=== PATIENT | female | born 1950 | race African-American/Black ===

== ENCOUNTER 2017-02-12 18:23 | Emergency (ER) | payer MEDICARE ==
[~2017-02-12] VITALS: Ht 162.6 cm; Wt 83.5 kg
[2017-02-12] MEDS ORDERED: IPRATRPIUM/ALBUTEROL 0.5/2.5MG 3 ML NEBU. NEB ONE (18:45)
[2017-02-12] MEDS ORDERED: methylPREDNISolone SOD SUCC PF 125 MG/2 ML VIAL. IV ONE (18:45)
[2017-02-12] MEDS ORDERED: ALBUTEROL SULFATE 2.5 MG/3 ML NEBU. INH ONE (18:45)
[2017-02-12 19:02] LABS: BASO # 0.1 x10^3/uL (0.0-0.2); BASO % 1 % (0-3); EOS % 5 % (0-3); HEMATOCRIT 42.2 % (36.0-47.0); HEMOGLOBIN 13.7 g/dL (12.0-15.5); LYMPH # 1.8 x10^3/uL (1.0-4.8); LYMPH % 15 % (24-48); MEAN CORPUSCULAR HEMOGLOBIN 28 pg (25-35); MEAN CORPUSCULAR HGB CONC 33 g/dL (31-37); MEAN CORPUSCULAR VOLUME 85 fL (79-100); MONO % 13 % (0-9); NEUT % 66 % (31-73); PLATELET COUNT 231 x10^3/uL (140-400); RED BLOOD COUNT 4.95 x10^6/uL (3.50-5.40); RED CELL DISTRIBUTION WIDTH 16.9 % (11.5-14.5); WHITE BLOOD COUNT 11.9 x10^3/uL (4.0-11.0)
[2017-02-12 19:15] LABS: CALCIUM 9.2 mg/dL (8.5-10.1); CREATININE 0.8 mg/dL (0.6-1.0); GFR 87.1; POTASSIUM 3.8 mmol/L (3.5-5.1)
[2017-02-12] MEDS ORDERED: ALBUTEROL SULFATE 2.5 MG/3 ML NEBU. CONT NEB ONE (19:45)
[2017-02-12 21:36] VITALS: BP 148/78
[2017-02-12] MEDS ORDERED: AZIT250T6 PO (21:43)
[2017-02-12] MEDS ORDERED: PRED50TA PO (21:43)
--- NOTE | 2017-02-12 21:43 | PHYS DOC ---
Past Medical History Past Medical History: COPD, Diabetes-Type II, Hypertension Past Surgical History: Cholecystectomy, Hysterectomy, Other Additional Past Surgical Histo: BACK Additional Information: 0.5 PPD Alcohol Use: None Drug Use: None Adult General Chief Complaint Chief Complaint: SHORTNESS OF BREATH HPI HPI Patient is a 66 year old female who presents with shortness of breath. Patient reports 2 day history of wheezing, shortness of breath at rest, cough productive of small amount of yellow sputum. Denies fevers/chills, chest pain, lower extremity pain/swelling. She has history of COPD dependent on home O2 2L at baseline, no previous hospitalizations for COPD, has visited ED previously. Symptoms not improved by use of home inhalers. She still smokes cigarettes. Denies cardiac history. PCP is Dr. Humphries, doesn't have corporate lawyer. Review of Systems Review of Systems Constitutional: Denies fever or chills Eyes: Denies change in visual acuity HENT: Denies nasal congestion or sore throat Respiratory: Reports cough & shortness of breath Cardiovascular: Denies chest pain or edema GI: Denies abdominal pain, nausea, vomiting, or diarrhea Musculoskeletal: Denies back pain or joint pain Integument: Denies rash or skin lesions Neurologic: Denies headache, focal weakness or sensory changes Current Medications Current Medications Current Medications Medications (Trade) Dose Ordered Sig/Lizeth Start Time Stop Time Status Last Admin Dose Admin Albuterol Sulfate (Ventolin Neb Soln) 10 mg 1X ONCE 02/12/17 19:45 02/12/17 19:48 DC 02/12/17 20:04 10 MG Albuterol/ Ipratropium (Duoneb) 3 ml 1X ONCE 02/12/17 18:45 02/12/17 18:52 DC 02/12/17 19:03 3 ML Methylprednisolone Sodium Succinate (SOLU-Medrol 125MG VIAL) 125 mg 1X ONCE 02/12/17 18:45 02/12/17 18:52 DC 02/12/17 19:37 125 MG Allergies Allergies Allergies Coded Allergies Type Severity Reaction Last Updated Verified ciprofloxacin Allergy Unknown 02/12/17 Yes codeine Allergy Unknown 02/12/17 Yes Physical Exam Physical Exam Constitutional: obese, no acute distress, non-toxic appearance. HENT: Normocephalic, atraumatic, bilateral external ears normal, oropharynx moist, nose normal. Eyes: conjunctiva normal, no discharge. Neck: supple, no stridor. Cardiovascular: RRR, no murmurs, no edema. Lungs & Thorax: breath sounds present bilaterally, expiratory wheezes in all lung [place], increased work of breathing, speaking in complete sentences, no use of accessory muscles, no distress. Abdomen: soft, nontender, nondistended. Skin: Warm, dry, no erythema, no rash. Back: No tenderness. Extremities: No tenderness, no edema. no calf tenderness or swelling. Neurologic: Alert and oriented X 3, no focal deficits noted. Psychologic: Affect normal, judgement normal, mood normal. Current Patient Data Vital Signs Vital Signs Date Time Temp Pulse Resp B/P (MAP) Pulse Ox O2 Delivery O2 Flow Rate FiO2 02/12/17 21:36 95 18 148/78 (101) 94 Room Air 02/12/17 20:05 2.0 02/12/17 18:28 98.6 98.6 Lab Values Laboratory Tests Test 02/12/17 18:30 White Blood Count 11.9 x10^3/uL (4.0-11.0) H Red Blood Count 4.95 x10^6/uL (3.50-5.40) Hemoglobin 13.7 g/dL (12.0-15.5) Hematocrit 42.2 % (36.0-47.0) Mean Corpuscular Volume 85 fL (79-100) Mean Corpuscular Hemoglobin 28 pg (25-35) Mean Corpuscular Hemoglobin Concent 33 g/dL (31-37) Red Cell Distribution Width 16.9 % (11.5-14.5) H Platelet Count 231 x10^3/uL (140-400) Neutrophils (%) (Auto) 66 % (31-73) Lymphocytes (%) (Auto) 15 % (24-48) L Monocytes (%) (Auto) 13 % (0-9) H Eosinophils (%) (Auto) 5 % (0-3) H Basophils (%) (Auto) 1 % (0-3) Neutrophils # (Auto) 7.9 x10^3uL (1.8-7.7) H Lymphocytes # (Auto) 1.8 x10^3/uL (1.0-4.8) Monocytes # (Auto) 1.5 x10^3/uL (0.0-1.1) H Eosinophils # (Auto) 0.6 x10^3/uL (0.0-0.7) Basophils # (Auto) 0.1 x10^3/uL (0.0-0.2) Sodium Level 147 mmol/L (136-145) H Potassium Level 3.8 mmol/L (3.5-5.1) Chloride Level 109 mmol/L (98-107) H Carbon Dioxide Level 27 mmol/L (21-32) Anion Gap 11 (6-14) Blood Urea Nitrogen 13 mg/dL (7-20) Creatinine 0.8 mg/dL (0.6-1.0) Estimated GFR (Cockcroft-Gault) 87.1 Glucose Level 143 mg/dL (70-99) H Calcium Level 9.2 mg/dL (8.5-10.1) Troponin I Quantitative < 0.017 ng/mL (0.000-0.055) GR-Iyp-Z-Type Natriuretic Peptide 141 pg/mL (0-124) H Laboratory Tests 02/12/17 18:30 Laboratory Tests 02/12/17 18:30 EKG EKG interpreted by me: NSR rate 86, no acute ST/T wave changes, RBBB, no ectopy.[] Radiology/Procedures Radiology/Procedures CXR: interpreted by me: no cardiomegaly, no infiltrate, no pneumothorax, no acute process.[] Course & Med Decision Making Course & Med Decision Making Pertinent Labs and Imaging studies reviewed. (See chart for details) Patient presents with shortness of breath consistent with COPD exacerbation. O2 stable on 2L by NC but significant wheezing on exam. Gave duoneb, albuterol , solumedrol. She felt better but not back to baseline, still wheezing on exam. Gave hour long albuterol treatment & she felt markedly better, wheezing improved. Never hypoxic here. Requested discharge home. Gave prescriptions for prednisone & z pack, continue inhalers, recommend follow up with PCP in 2-3 days. Come back for high fever, severe chest pain or shortness of breath, any otherwise worsening condition. Discharged home in stable & improved condition. Critical care time: 35 minutes [] Dragon Disclaimer Dragon Disclaimer This electronic medical record was generated, in whole or in part, using a voice recognition dictation system. Departure Departure Impression: Primary Impression: COPD with exacerbation Disposition: HOME, SELF-CARE Condition: IMPROVED Referrals: KENAN HUMPHRIES (PCP) Patient Instructions: Chronic Obstructive Pulmonary Disease Exacerbation, Easy- to-Read Additional Instructions: You were seen in the emergency department today for exacerbation of COPD. Tests here did not show any other serious problems. Please continue using home inhalers. Take prednisone and azithromycin as prescribed. Follow-up with primary care physician in 2-3 days. Return to the emergency department for severe shortness of breath or chest pain, or any otherwise worsening condition. Scripts Azithromycin (AZITHROMYCIN TABLET) 250 Mg Tablet 1 PKG PO UD, #6 TAB Prov: WILBER LUCIANO MD 02/12/17 Prednisone (PREDNISONE) 50 Mg Tablet 1 TAB PO DAILY, #5 TAB Prov: WILBER LUCIANO MD 02/12/17 WILBER LUCIANO MD February 12, 2017 21:43
--- NOTE | 2017-02-13 07:10 | EKG ---
[facility] [address] [place] [address] Test Date: 2017-02-12 Test Time: 18:34:31 Pat Name: AVTAR MC Department: Room: Gender: F Technical Engineer: Farzaneh : 1950 Requested By: WILBER LUCIANO Order Number: [id number] Reading MD: Duane Barrientos Measurements Intervals [place] Rate: 86 P: 70 MD: 166 QRS: -43 QRSD: 124 T: 28 QT: 398 QTc: 480 Interpretive Statements SINUS RHYTHM ABNORMAL LEFT AXIS DEVIATION LEFT ANTERIOR FASCICULAR BLOCK RIGHT BUNDLE BRANCH BLOCK Electronically Signed On 02-13-2017 10:44:20 CDT by Duane Barrientos
--- NOTE | 2017-02-13 08:22 | RAD ---
Indication shortness of air. Hypertension. Diabetes. COPD. A single view of the chest was obtained and comparison is made to an examination October 09, 2012. The heart and pulmonary vessels appear normal. The lungs are clear. There has not been a significant change when compared to the previous exam. IMPRESSION: No acute or focal process. No significant change
== END 2017-02-12 22:01 | disposition home or self-care (01) ==
LOC: ER 18:23
DX: J44.1 Chronic obstructive pulmonary disease with (acute) exacerbation (principal); E11.9 Type 2 diabetes mellitus without complications; I10 Essential (primary) hypertension; F17.210 Nicotine dependence, cigarettes, uncomplicated; Z88.1 Allergy status to other antibiotic agents; Z88.5 Allergy status to narcotic agent
CPT/HCPCS: 36415; 71010; 80048; 83880; 84484; 85027; 93005; 94250; 94644; 96374; 99291; J2930; J7620; 94640

== ENCOUNTER → 2018-09-19 | Outpatient (CLI) | payer MEDICARE ==
[2018-08-23 09:15] VITALS: BP 143/72
[~2018-09-19] MED LIST: AMLO10TA6 PO; AZIT250T6 PO; CEPH250C PO; HYDR-2765 PO; HYDR-3135 PO; IPRA4AER IH; LOSA-73 PO; LOSA100T14 PO; PRED50TA PO; VENTOLIN HFA18 GM INH; ZOLP5TAB5 PO
--- NOTE | 2018-09-19 15:05 | RAD ---
CLINICAL HISTORY: LUNG MASS. INDICATION: Initial evaluation. COMPARISON: CT chest 08/20/2018, CT guided biopsy 08/22/2018. TECHNIQUE: Location of scan: [facility] Radiopharmaceutical Dose: 11.34 mCi F-18 FDG intravenous Blood glucose at time of study: 96 FDG uptake time = 60 minutes. Images were obtained from the mid head to the mid thighs. A low dose, noncontrast CT study was performed for the purpose of attenuation correction and anatomic localization. FINDINGS: Head and Neck: Physiologic activity within the head and neck Chest: A 2.6 cm right upper lobe lung nodule is seen within SUV max of 13.9. No definite other focus of increased metabolic activity is seen within the chest. A few calcified mediastinal lymph nodes are seen. Coronary artery calcifications are seen. Abdomen and Pelvis: Physiologic activity is seen within the GI and systems. No focus of abnormal increased metabolic activity is identified. Musculoskeletal: Mildly increased metabolic activity is seen about the left shoulder including the rotator cuff and deltoid, likely from movement of the left shoulder prior to scanning. No discrete focus of abnormal activity is seen within the left shoulder. Reference SUV Values: Mediastinal SUV Max: 3.1 Liver SUV Max: 3.7 IMPRESSION: Hypermetabolic right lung nodule is consistent with the known right lung malignancy. No definite abnormal thoracic, abdominal or pelvic focus of increased metabolic activity is seen. Radiation Dosimetry: The radiopharmaceutical used for this exam delivers approximately 0.7 mSv/mCi (70 mRem/mCi) Source: ICRP Publication 106
== END | disposition home or self-care (01) ==
LOC: PETSC 11:23
PROVIDERS: ATTEND Internal Medicine Pulmonary Disease
DX: R91.8 Other nonspecific abnormal finding of lung field (principal); I25.10 Atherosclerotic heart disease of native coronary artery without angina pectoris; F17.210 Nicotine dependence, cigarettes, uncomplicated
CPT/HCPCS: 78815; A9552

== ENCOUNTER 2018-10-04 00:06 | Emergency (ER) | payer MEDICARE, OTHER ==
[~2018-10-04] VITALS: Ht 162.6 cm; Wt 78.9 kg
[2018-10-04 00:42] LABS: BASO # 0.1 x10^3/uL (0.0-0.2); BASO % 1 % (0-3); BILIRUBIN,URINE NEGATIVE (NEG); CLARITY,URINE CLOUDY; COLOR,URINE YELLOW; EOS # 0.4 x10^3/uL (0.0-0.7); EOS % 5 % (0-3); HEMATOCRIT 34.9 % (36.0-47.0); LYMPH # 1.4 x10^3/uL (1.0-4.8); LYMPH % 16 % (24-48); MEAN CORPUSCULAR HEMOGLOBIN 29 pg (25-35); MEAN CORPUSCULAR HGB CONC 34 g/dL (31-37); MEAN CORPUSCULAR VOLUME 85 fL (79-100); MONO # 0.6 x10^3/uL (0.0-1.1); MONO % 7 % (0-9); NEUT # 6.4 x10^3uL (1.8-7.7); NEUT % 71 % (31-73); NITRITE,URINE NEGATIVE (NEG); PLATELET COUNT 254 x10^3/uL (140-400); PROTEIN,URINE NEGATIVE (NEG-TRACE); RED BLOOD COUNT 4.09 x10^6/uL (3.50-5.40); RED CELL DISTRIBUTION WIDTH 15.6 % (11.5-14.5)
[2018-10-04 00:46] LABS: BACTERIA,URINE MANY /HPF (0-FEW); SQUAMOUS EPITHELIAL CELL,UR OCC /LPF; WBC,URINE TNTC /HPF (0-4)
[2018-10-04 01:11] VITALS: BP 150/81
[2018-10-04 01:12] LABS: CALCIUM 9.2 mg/dL (8.5-10.1); CREATININE 0.7 mg/dL (0.6-1.0); POTASSIUM 3.4 mmol/L (3.5-5.1)
[2018-10-04] MEDS ORDERED: SULF1TAB24 PO (01:25)
[2018-10-04] MEDS: SMZ/TMP 800/160MG TABLET. PO ONE (01:30)
--- NOTE | 2018-10-04 04:44 | PHYS DOC ---
Past Medical History Past Medical History: COPD, Diabetes-Type II, Hypertension Additional Past Medical Histor: straight caths self Past Surgical History: Cholecystectomy, Hysterectomy, Other Additional Past Surgical Histo: BACK Alcohol Use: None Drug Use: None Adult General Chief Complaint Chief Complaint: DIARRHEA HPI HPI Patient is a 68 year old female with history of neurogenic bladder who presents with dysuria, burning, and reported intermittent daily diarrhea for the past month. Patient denies dizziness lightheadedness, fever chills, nausea vomiting or sweats. No flank pain, lower abdominal pain. No other acute symptoms or complaints. [] Review of Systems Review of Systems Constitutional: Denies fever or chills [] Eyes: Denies change in visual acuity, redness, or eye pain [] HENT: Denies nasal congestion or sore throat [] Respiratory: Denies cough or shortness of breath [] Cardiovascular: No additional information not addressed in HPI [] GI: Denies abdominal pain, nausea, vomiting, bloody stools or diarrhea [] : Denies dysuria or hematuria [] Musculoskeletal: Denies back pain or joint pain [] Integument: Denies rash or skin lesions [] Neurologic: Denies headache, focal weakness or sensory changes [] Endocrine: Denies polyuria or polydipsia [] All other systems were reviewed and found to be within normal limits, except as documented in this note. Current Medications Current Medications Current Medications Medications (Trade) Dose Ordered Sig/Lizeth Start Time Stop Time Status Last Admin Dose Admin Trimethoprim/ Sulfamethoxazole (Bactrim Ds) 1 tab 1X ONCE 10/04/18 02:00 10/04/18 02:00 DC 10/04/18 01:30 1 TAB Allergies Allergies Allergies Coded Allergies Type Severity Reaction Last Updated Verified ciprofloxacin Allergy Intermediate 06/18/18 Yes codeine Allergy Intermediate LORTAB OK 06/19/18 Yes Physical Exam Physical Exam Constitutional: Well developed, well nourished, no acute distress, non-toxic appearance. [] HENT: Normocephalic, atraumatic, bilateral external ears normal, oropharynx moist, nose normal. [] Eyes: PERRLA, EOMI, conjunctiva normal, no discharge. [] Neck: Normal range of motion, no tenderness. [] Cardiovascular:Heart rate regular rhythm, no murmur [] Lungs & Thorax: Bilateral breath sounds clear to auscultation [] Abdomen: Bowel sounds normal, soft, no tenderness. [] Skin: Warm, dry, no erythema, no rash. [] Back: No tenderness. [] Extremities: No tenderness, no edema. [] Neurologic: Alert and oriented X 3, normal motor function, normal sensory function, no focal deficits noted. [] Psychologic: Affect normal, judgement normal, mood normal. [] Current Patient Data Vital Signs Vital Signs Date Time Temp Pulse Resp B/P (MAP) Pulse Ox O2 Delivery O2 Flow Rate FiO2 10/04/18 01:11 77 18 150/81 (104) 96 Room Air 10/04/18 00:10 98.1 98.1 Lab Values Laboratory Tests Test 10/04/18 00:20 10/04/18 00:50 White Blood Count 9.0 x10^3/uL (4.0-11.0) Red Blood Count 4.09 x10^6/uL (3.50-5.40) Hemoglobin 12.0 g/dL (12.0-15.5) Hematocrit 34.9 % (36.0-47.0) L Mean Corpuscular Volume 85 fL (79-100) Mean Corpuscular Hemoglobin 29 pg (25-35) Mean Corpuscular Hemoglobin Concent 34 g/dL (31-37) Red Cell Distribution Width 15.6 % (11.5-14.5) H Platelet Count 254 x10^3/uL (140-400) Neutrophils (%) (Auto) 71 % (31-73) Lymphocytes (%) (Auto) 16 % (24-48) L Monocytes (%) (Auto) 7 % (0-9) Eosinophils (%) (Auto) 5 % (0-3) H Basophils (%) (Auto) 1 % (0-3) Neutrophils # (Auto) 6.4 x10^3uL (1.8-7.7) Lymphocytes # (Auto) 1.4 x10^3/uL (1.0-4.8) Monocytes # (Auto) 0.6 x10^3/uL (0.0-1.1) Eosinophils # (Auto) 0.4 x10^3/uL (0.0-0.7) Basophils # (Auto) 0.1 x10^3/uL (0.0-0.2) Urine Collection Type U cath Urine Color Yellow Urine Clarity Cloudy Urine pH 6.0 Urine Specific [place] 1.015 Urine Protein Negative mg/dL (NEG-TRACE) Urine Glucose (UA) Negative mg/dL (NEG) Urine Ketones (Stick) Negative mg/dL (NEG) Urine Blood Trace (NEG) Urine Nitrite Negative (NEG) Urine Bilirubin Negative (NEG) Urine Urobilinogen Dipstick 1.0 mg/dL (0.2 mg/dL) Urine Leukocyte Esterase Large (NEG) Urine RBC 1-2 /HPF (0-2) Urine WBC Tntc /HPF (0-4) Urine Squamous Epithelial Cells Occ /LPF Urine Bacteria Many /HPF (0-FEW) Sodium Level 140 mmol/L (136-145) Potassium Level 3.4 mmol/L (3.5-5.1) L Chloride Level 106 mmol/L (98-107) Carbon Dioxide Level 31 mmol/L (21-32) Anion Gap 3 (6-14) L Blood Urea Nitrogen 22 mg/dL (7-20) H Creatinine 0.7 mg/dL (0.6-1.0) Estimated GFR (Cockcroft-Gault) 101.0 Glucose Level 137 mg/dL (70-99) H Calcium Level 9.2 mg/dL (8.5-10.1) Laboratory Tests 10/04/18 00:20 Laboratory Tests 10/04/18 00:50 EKG EKG [] Radiology/Procedures Radiology/Procedures [] Course & Med Decision Making Course & Med Decision Making Pertinent Labs and Imaging studies reviewed. (See chart for details) Soft, nontender, lab work reviewed. First dose of antibiotics given in the emergency department. Recommend empiric and buttocks with outpatient follow-up.] Dragon Disclaimer Dragon Disclaimer This electronic medical record was generated, in whole or in part, using a voice recognition dictation system. Departure Departure Impression: Primary Impression: Urinary tract infection Additional Impression: Diarrhea Disposition: 01 HOME, SELF-CARE Condition: GOOD Patient Instructions: Urinary Tract Infection, Brin-[id number]-Mmlr, Diarrhea, Easy-to- Read Additional Instructions: You were evaluated in the emergency department for diarrhea and dysuria. Lab work was performed and is consistent with a lower urinary tract infection. Please take antibiotics as directed and an Imodium [id number] as needed. Follow-up with your PCP for reevaluation in 2-3 days. Scripts Sulfamethoxazole/Trimethoprim (BACTRIM DS TABLET) 1 Each Tablet 1 TAB PO BID, #14 TAB Prov: TALA KATZ DO 10/04/18 Problem Qualifiers TALA KATZ DO Oct 04, 2018 04:44
== END 2018-10-04 01:35 | disposition home or self-care (01) ==
LOC: ER 00:06
DX: N39.0 Urinary tract infection, site not specified (principal); R19.7 Diarrhea, unspecified; J44.9 Chronic obstructive pulmonary disease, unspecified; E11.9 Type 2 diabetes mellitus without complications; I10 Essential (primary) hypertension; Z90.49 Acquired absence of other specified parts of digestive tract; Z90.710 Acquired absence of both cervix and uterus; Z88.1 Allergy status to other antibiotic agents; Z88.5 Allergy status to narcotic agent
CPT/HCPCS: 36415; 80048; 81001; 85025; 87086; 99284

== ENCOUNTER 2018-11-02 14:17 | Emergency (ER) | payer OTHER ==
[~2018-11-02] VITALS: Ht 162.6 cm; Wt 78.0 kg
[~2018-11-02 14:17] MED LIST changes: -AMLO10TA6 PO; +AMLO10TA8 PO; +SULF1TAB24 PO
[2018-11-02 14:50] VITALS: BP 141/76
[2018-11-02 15:56] LABS: BASO # 0.1 x10^3/uL (0.0-0.2); BASO % 1 % (0-3); EOS # 0.3 x10^3/uL (0.0-0.7); EOS % 4 % (0-3); HEMATOCRIT 38.2 % (36.0-47.0); HEMOGLOBIN 12.5 g/dL (12.0-15.5); LYMPH # 1.4 x10^3/uL (1.0-4.8); LYMPH % 18 % (24-48); MEAN CORPUSCULAR HEMOGLOBIN 28 pg (25-35); MEAN CORPUSCULAR HGB CONC 33 g/dL (31-37); MEAN CORPUSCULAR VOLUME 86 fL (79-100); MONO # 0.5 x10^3/uL (0.0-1.1); MONO % 6 % (0-9); NEUT # 5.6 x10^3uL (1.8-7.7); NEUT % 71 % (31-73); PLATELET COUNT 253 x10^3/uL (140-400); RED BLOOD COUNT 4.45 x10^6/uL (3.50-5.40); RED CELL DISTRIBUTION WIDTH 16.3 % (11.5-14.5); WHITE BLOOD COUNT 7.8 x10^3/uL (4.0-11.0)
[2018-11-02 16:10] LABS: CALCIUM 9.5 mg/dL (8.5-10.1); CREATININE 0.8 mg/dL (0.6-1.0); GFR 86.6; POTASSIUM 3.7 mmol/L (3.5-5.1)
[2018-11-02 16:16] LABS: ALBUMIN 3.7 g/dL (3.4-5.0); TOTAL BILIRUBIN 0.5 mg/dL (0.2-1.0); TOTAL PROTEIN 7.4 g/dL (6.4-8.2)
--- NOTE | 2018-11-02 16:22 | PHYS DOC ---
Past Medical History Past Medical History: COPD, Diabetes-Type II, Hypertension Additional Past Medical Histor: straight caths self (CHRISTINA EWING Yaima RN ADMIT) Past Surgical History: Cholecystectomy, Hysterectomy, Other Additional Past Surgical Histo: BACK (CHRISTINA EWING Yaima RN ADMIT) Alcohol Use: None Drug Use: None (CHRISTINA EWING Yaima [place]) Adult General Chief Complaint Chief Complaint: OTHER COMPLAINTS HPI HPI Patient is a 68 year old female who presents with bruising to her bilateral legs. The patient states that she had sepsis in June and had similar discolorations. She thought that this might be a rash that meant that she was going back into sepsis. She denies fever or recent illness. Patient denies daily blood thinners. (CHRISTINA EWING Yaima [place]) Review of Systems Review of Systems Constitutional: Denies fever or chills [] Respiratory: Denies cough or shortness of breath [] Cardiovascular: No additional information not addressed in HPI [] GI: Denies abdominal pain, nausea, vomiting, bloody stools or diarrhea [] : Denies dysuria or hematuria [] Musculoskeletal: Denies back pain or joint pain [] Integument: see history of present illness Neurologic: Denies headache, focal weakness or sensory changes [] Endocrine: Denies polyuria or polydipsia [] All other systems were reviewed and found to be within normal limits, except as documented in this note. (CHRISTINA EWING MARISA) Allergies Allergies Allergies Coded Allergies Type Severity Reaction Last Updated Verified ciprofloxacin Allergy Intermediate 06/18/18 Yes codeine Allergy Intermediate LORTAB OK 06/19/18 Yes (NE WOO DO) Physical Exam Physical Exam Constitutional: Well developed, well nourished, no acute distress, non-toxic appearance. [] Cardiovascular:Heart rate regular rhythm, no murmur [] Lungs & Thorax: Bilateral breath sounds clear to auscultation [] Abdomen: Bowel sounds normal, soft, no tenderness, no masses, no pulsatile masses. [] Skin: Multiple small areas of ecchymosis that are flat with no hematomas noted Back: No tenderness, no CVA tenderness. [] Extremities: No tenderness, no cyanosis, no clubbing, ROM intact, no edema. [] Neurologic: Alert and oriented X 3, normal motor function, normal sensory function, no focal deficits noted. [] Psychologic: Affect normal, judgement normal, mood normal. [] (LOGANHONORIO CAPUTOLATRELL Erwin APRN) Current Patient Data Vital Signs Vital Signs Date Time Temp Pulse Resp B/P (MAP) Pulse Ox O2 Delivery O2 Flow Rate FiO2 11/02/18 14:50 98.1 66 20 141/76 (97) 96 Room Air 98.1 (WOO,NE R DO) Lab Values Laboratory Tests Test 11/02/18 15:45 White Blood Count 7.8 x10^3/uL (4.0-11.0) Red Blood Count 4.45 x10^6/uL (3.50-5.40) Hemoglobin 12.5 g/dL (12.0-15.5) Hematocrit 38.2 % (36.0-47.0) Mean Corpuscular Volume 86 fL (79-100) Mean Corpuscular Hemoglobin 28 pg (25-35) Mean Corpuscular Hemoglobin Concent 33 g/dL (31-37) Red Cell Distribution Width 16.3 % (11.5-14.5) H Platelet Count 253 x10^3/uL (140-400) Neutrophils (%) (Auto) 71 % (31-73) Lymphocytes (%) (Auto) 18 % (24-48) L Monocytes (%) (Auto) 6 % (0-9) Eosinophils (%) (Auto) 4 % (0-3) H Basophils (%) (Auto) 1 % (0-3) Neutrophils # (Auto) 5.6 x10^3uL (1.8-7.7) Lymphocytes # (Auto) 1.4 x10^3/uL (1.0-4.8) Monocytes # (Auto) 0.5 x10^3/uL (0.0-1.1) Eosinophils # (Auto) 0.3 x10^3/uL (0.0-0.7) Basophils # (Auto) 0.1 x10^3/uL (0.0-0.2) Sodium Level 147 mmol/L (136-145) H Potassium Level 3.7 mmol/L (3.5-5.1) Chloride Level 109 mmol/L (98-107) H Carbon Dioxide Level 32 mmol/L (21-32) Anion Gap 6 (6-14) Blood Urea Nitrogen 21 mg/dL (7-20) H Creatinine 0.8 mg/dL (0.6-1.0) Estimated GFR (Cockcroft-Gault) 86.6 BUN/Creatinine Ratio 26 (6-20) H Glucose Level 100 mg/dL (70-99) H Calcium Level 9.5 mg/dL (8.5-10.1) Total Bilirubin 0.5 mg/dL (0.2-1.0) Aspartate Amino Transferase (AST) 22 U/L (15-37) Alanine Aminotransferase (ALT) 31 U/L (14-59) Alkaline Phosphatase 69 U/L (46-116) Total Protein 7.4 g/dL (6.4-8.2) Albumin 3.7 g/dL (3.4-5.0) Albumin/Globulin Ratio 1.0 (1.0-1.7) Laboratory Tests 11/02/18 15:45 Laboratory Tests 11/02/18 15:45 (NE WOO DO) EKG EKG [] (CHRISTINA EWING APRN) Radiology/Procedures Radiology/Procedures [] (CHRISTINA EWING APRN) Course & Med Decision Making Course & Med Decision Making Pertinent Labs and Imaging studies reviewed. (See chart for details) []It appears that where the patient's crossbeam's are on her walker are where the bruised areas are forming on her thighs. This seems to be more of a mechanical issue. (CHRISTINA EWING APRN) Dragon Disclaimer Dragon Disclaimer This electronic medical record was generated, in whole or in part, using a voice recognition dictation system. (CHRISTINA EWING APRN) Departure Departure Impression: Primary Impression: Ecchymosis Disposition: HOME, SELF-CARE Condition: STABLE Referrals: KENAN HUMPHRIES (PCP) Additional Instructions: Follow-up with your primary care provider for a recheck in one week if not improving. If worsening return to the emergency department. Attending Signature Attending Signature I have reviewed the PA/PLUMBING ASSEMBLER INSTALLER's note and plan of care. I was available for consultation as needed during the patient's visit in the emergency department. I agree with the clinical impression, plan, and disposition. (NE WOO DO) CHRISTINA EWING APRN Nov 02, 2018 16:22 NE WOO DO Nov 04, 2018 18:07
== END 2018-11-02 16:29 | disposition home or self-care (01) ==
LOC: ER 14:17
DX: S80.12XA Contusion of left lower leg, initial encounter (principal); S80.11XA Contusion of right lower leg, initial encounter; I10 Essential (primary) hypertension; E11.9 Type 2 diabetes mellitus without complications; J44.9 Chronic obstructive pulmonary disease, unspecified; Z88.1 Allergy status to other antibiotic agents; Z88.5 Allergy status to narcotic agent; X58.XXXA Exposure to other specified factors, initial encounter; Y93.89 Activity, other specified; Y92.89 Other specified places as the place of occurrence of the external cause; Y99.8 Other external cause status
CPT/HCPCS: 36415; 80053; 85025; 99283

== ENCOUNTER → 2019-02-14 | Outpatient (CLI) | payer OTHER ==
[~2019-02-14] MED LIST changes: +BUDE10.2 IH; +CARV12.5 PO; +FURO-68 PO; +GABA300C18 PO; +OXYC5CAP PO
--- NOTE | 2019-02-14 13:10 | RAD ---
CT of the chest without contrast, 02/14/2019: History: Follow-up right lung cancer Noncontrast scans were obtained as requested and compared to a study from 08/20/2018. The irregular pulmonary nodule in the right lung centered at the level of the minor fissure has decreased in size. It currently measures approximately 18 x 13 mm on the axial images compared to measurements of 24 x 21 mm on the previous study. A tiny subpleural nodule in the right upper lobe anterolaterally is dense and is probably a granuloma. It is unchanged. There is a small calcified granuloma in the right middle lobe. A tiny noncalcified 4 mm nodule in the right middle lobe as seen on image 38 of series #2 appears unchanged. There is mild streaky scarring medially in the right lung base. No new pulmonary nodularity or infiltrate is seen. There is no evidence of pleural fluid. There is moderate calcific plaquing of the thoracic aorta without evidence of aneurysm. Minimal coronary calcifications are noted. There are calcified mediastinal and right hilar lymph nodes compatible with granulomatous disease. No mediastinal adenopathy is seen. There is a small cyst in the upper pole of the right kidney. On the lowest most slices there appears to be bone graft fragments related to the lumbar spine with a radiopaque foreign body on the left probably representing a portion of a fixation antonio. There is streaky increased density in the subcutaneous soft tissues posteriorly likely on a postsurgical basis. IMPRESSION: 1. The right lung neoplasm centered at the level of the minor fissure has decreased in size since 08/20/2018. 2. Old healed granulomatous disease in the chest. 3. Unchanged tiny right middle pulmonary lobe nodule. 4. Evidence of interval lumbar spine surgery, incompletely visualized on these chest images. PQRS Compliance Statement: One or more of the following individualized dose reduction techniques were utilized for this examination: 1. Automated exposure control 2. Adjustment of the mA and/or kV according to patient size 3. Use of iterative reconstruction technique
== END | disposition home or self-care (01) ==
LOC: CT 10:09
PROVIDERS: ATTEND Radiology Radiation Oncology
DX: C34.11 Malignant neoplasm of upper lobe, right bronchus or lung (principal); R91.8 Other nonspecific abnormal finding of lung field; J84.10 Pulmonary fibrosis, unspecified; I25.10 Atherosclerotic heart disease of native coronary artery without angina pectoris
CPT/HCPCS: 71250

== ENCOUNTER → 2019-08-12 | Outpatient (CLI) | payer OTHER ==
[~2019-08-12] MED LIST changes: +FLUT1BLS3 IH; +GABA-689 PO
--- NOTE | 2019-08-12 17:35 | RAD ---
STUDY: CT chest without contrast INDICATION: Follow-up lung adenocarcinoma status post radiation therapy. COMPARISON: CT chest 02/14/2019 TECHNIQUE: Helical CT imaging of the chest performed without the use of intravenous contrast. Sagittal and coronal reformats were obtained. One or more of the following individualized dose reduction techniques were utilized for this examination: 1. Automated exposure control 2. Adjustment of the mA and/or kV according to patient size 3. Use of iterative reconstruction technique. FINDINGS: Vasculature: Multifocal calcific atherosclerosis as well as calcific coronary artery disease. No newly seen aneurysmal dilatation of the thoracic or upper abdominal aorta. Mediastinum/alen: No newly identified or enlarging mediastinal or hilar lymph node is seen taking into consideration the absence of intravenous contrast. No pericardial effusion. Scattered calcified granulomas. Lungs: In the region of the lower aspect of the right upper lobe, ill-defined mostly groundglass opacification relates to interval radiation therapy. The previously seen mass in this region is no longer identified. The right middle lobe, 4 mm nodule is unchanged in size dating back to the 08 20 2018 comparison. Faint millimetric nodule at the periphery of the right lower lobe on image 36 series 3 is unchanged. No newly seen or enlarging nodule on the left. Neck/axilla/chest wall: A few mildly prominent right axillary lymph nodes such as on image 9 series 2 are not significantly changed in size. No newly seen or enlarging left axillary lymph node. Bones: No newly seen fracture or aggressive osseous process. Partially visualized lumbar and cervical spine hardware. Multifactorial degenerative changes throughout the spine are not significantly different from the prior. Partially visualized degenerative changes of both shoulders. Upper abdomen: Unchanged prominence of the left adrenal gland. Upper pole right renal cyst is unchanged as is a partially visualized area of low attenuation at the anterior aspect of the mid right kidney, image 63 series 2. No newly seen abnormality of the liver noting the absence of intravenous contrast. The spleen is unchanged in size. IMPRESSION: 1. The previously seen nodule in the region of the lower right upper lobe is no longer identified. At this location, development of ill-defined mostly groundglass attenuation which corresponds to treatment-related change. No newly seen or enlarging pulmonary nodule or development of mediastinal/hilar adenopathy. 2. Numerous chronic findings, as described above, are not significantly different from the prior studies. Electronically signed by: ITZEL SARAH MD (08/12/2019 5:33 PM) [facility]
== END | disposition home or self-care (01) ==
LOC: CT 09:55
PROVIDERS: ATTEND Radiology Radiation Oncology
DX: C34.81 Malignant neoplasm of overlapping sites of right bronchus and lung (principal); I25.10 Atherosclerotic heart disease of native coronary artery without angina pectoris; J84.10 Pulmonary fibrosis, unspecified; R91.8 Other nonspecific abnormal finding of lung field; N28.1 Cyst of kidney, acquired; Z92.3 Personal history of irradiation
CPT/HCPCS: 71250

== ENCOUNTER → 2019-12-05 | Outpatient (CLI) | payer MEDICARE ==
--- NOTE | 2019-12-05 11:28 | RAD ---
EXAM: CT Chest without IV contrast CLINICAL HISTORY: Lung cancer COMPARISON: 08/12/2019, 02/14/2019, PET scan 09/19/2018 TECHNIQUE: CT of the chest without intravenous contrast. Axial, coronal and sagittal reformatted images were generated. ---PQRS compliance statement - One or more of the following individualized dose reduction techniques were utilized for this study: 1. Automated exposure control 2. Adjustment of the mA and/or kV according to patient size 3. Use of iterative reconstruction technique--- FINDINGS: Lack of intravenous contrast limits evaluation of solid organs, vasculature, and lymph nodes. Chest: Heart is not enlarged. No pericardial effusion. No pleural effusion or pneumothorax. Calcified right hilar and mediastinal lymph nodes are seen. Within the constraints of noncontrast examination, no mediastinal or hilar lymphadenopathy is seen. A few mildly prominent right axillary lymph nodes are not enlarged by size criteria and contain fatty hilum. Paraspinal linear/patchy opacities likely atelectasis. Bandlike linear densities are seen along the right midlung at the site of lung nodule. On today's examination although the linear bandlike opacities are less conspicuous compared to 08/12/2019 there is now a more nodular component measuring 1.1 x 1 cm (series 2 image 22). This is suspicious for local recurrence or nodularity from retracting scar tissue/fibrotic change. Recommend close attention on follow-up. Visualized Upper abdomen: Calcified granuloma are seen within the spleen and liver. Mild left adrenal thickening is stable in appearance. Bones: Degenerative changes of the spine are seen. No definite aggressive osseous lesion is seen. IMPRESSION: 1. Degree of linear bandlike groundglass opacities in the right midlung demonstrates mild interval decrease although there is mild increase in focal nodularity, suspicious for local recurrence although increasing nodularity from fibrotic change may also have this appearance on a single slice. Short interval follow-up CT or further evaluation with PET scan is recommended. Electronically signed by: Milind Vasquez MD (12/05/2019 11:25 AM) [facility]
== END | disposition home or self-care (01) ==
LOC: CT 12:40
PROVIDERS: ATTEND Internal Medicine Pulmonary Disease
DX: C34.90 Malignant neoplasm of unspecified part of unspecified bronchus or lung (principal); I89.8 Other specified noninfective disorders of lymphatic vessels and lymph nodes; E27.8 Other specified disorders of adrenal gland; M47.819 Spondylosis without myelopathy or radiculopathy, site unspecified
CPT/HCPCS: 71250

== ENCOUNTER → 2020-02-26 | Outpatient (CLI) | payer MEDICARE ==
--- NOTE | 2020-02-26 14:43 | RAD ---
Noncontrast CT scan of the chest compared to similar examination dated December 142019 for adenocarcinoma, follow-up. TECHNIQUE: Contiguous helical 5 mm axial images are obtained from the thoracic inlet to the base of the diaphragm. Sagittal and coronal reformations are evaluated. FINDINGS: There is redepiction of a few small benign granulomas. The previously described area of bandlike groundglass opacity involving the right middle lobe, with subtle area of increasing nodularity is also redepicted and unchanged. In particular, the area of nodularity is less conspicuous, though again only seen on one imaging slice. No new lung nodules or masses are seen. Precarinal adenopathy is stable. No new mediastinal, hilar, or axillary adenopathy is identified. Mediastinal and right hilar calcified granulomas are stable. No significant abnormalities of the visualized upper abdominal organs, though evaluation is limited by lack of IV contrast. Severe multilevel degenerative changes the spine are again evident with no suspicious osteoblastic or osteolytic bone lesions. IMPRESSION: 1. Essentially stable CT scan of the chest with no new or suspicious lung nodules or masses. The previously seen depicted area of linear groundglass and nodularity in the right middle lobe is unchanged, though the nodular component which is again seen only on single slices less conspicuous today. PQRS Compliance Statement: One or more of the following individualized dose reduction techniques were utilized for this examination: 1. Automated exposure control 2. Adjustment of the mA and/or kV according to patient size 3. Use of iterative reconstruction technique Electronically signed by: Ryan Roche MD (02/26/2020 2:40 PM) [id number]
== END ==
LOC: CT 10:50
PROVIDERS: ATTEND Radiology Radiation Oncology
DX: C34.81 Malignant neoplasm of overlapping sites of right bronchus and lung (principal)
CPT/HCPCS: 71250

== ENCOUNTER → 2020-08-06 | Outpatient (CLI) | payer MEDICARE ==
[~2020-08-06] MED LIST changes: +AMLO-187 PO; -AMLO10TA8 PO
--- NOTE | 2020-08-06 15:09 | RAD ---
EXAM: CT Chest without IV contrast INDICATION: Reason: pulomonary nodule / Spl. Instructions: / History: TECHNIQUE: Multi-detector row CT images were acquired from the thoracic inlet through the upper abdomen without the use of IV contrast. Sagittal and coronal images were acquired from the transaxial data. All CT scans performed at this facility utilize dose optimization techniques as appropriate to the exam, including the following: Automated exposure control and adjustment of the mA and/or KV according to patient size (this includes techniques or standardized protocols for targeted exams where dose is indication/reason for exam). COMPARISON: CT chest without IV contrast 02/26/2020, 12/05/2019 and 02/14/2019 FINDINGS: The absence of IV contrast limits evaluation of soft tissue pathology. CARDIOVASCULAR: Unremarkable MEDIASTINUM & SANDRA: No adenopathy or masses. Multiple right hilar calcified lymph nodes, similar to prior. LUNGS: Slight interval increase in density to the platelike area of pleural-parenchymal scarring in the anterior right upper lobe abutting the minor fissure, comparing sagittal image 87 of series 6 this examination with sagittal image 54 series 6 on the prior examination and axial image 27 of series 2 this examination with axial series 27 of series 3 on the prior. New 6 mm irregular nodular density in the posterior left upper lobe (image 18 series 2, image 33 series 6) PLEURAL SPACE: No pleural effusions or pneumothorax. OSSEOUS & SOFT TISSUE: Generalized osteopenia and degenerative changes at multiple levels in the disks, most conspicuous at T12-L1. ABDOMEN: Mild nodular fullness of the left adrenal gland suggesting hyperplasia. Cholecystectomy clips. Partially imaged lumbar spinal fusion hardware. IMPRESSION: 1. Slightly increasing anterior right upper lobe pleural parenchymal changes. This could represent worsening scarring posttreatment. Tumor recurrence considered less likely but not yet excluded. Continued follow-up recommended, possibly with PET CT. Electronically signed by: Huyen Aguirre MD (08/06/2020 3:06 PM) [id number]
== END ==
LOC: CT 09:55
PROVIDERS: ATTEND Internal Medicine Pulmonary Disease
DX: R91.1 Solitary pulmonary nodule (principal); M85.88 Other specified disorders of bone density and structure, other site; M47.815 Spondylosis without myelopathy or radiculopathy, thoracolumbar region; M43.26 Fusion of spine, lumbar region; Z90.49 Acquired absence of other specified parts of digestive tract
CPT/HCPCS: 71250

== ENCOUNTER → 2020-10-08 | Outpatient (CLI) | payer MEDICARE ==
[~2020-10-08] MED LIST changes: +PRED20TA PO
--- NOTE | 2020-10-08 13:59 | RAD ---
EXAM: NM PET/CT SKULL BASE TO MID THIGH EXAM DATE: 10/08/2020 INDICATION: Right upper lobe lung mass. Restaging RADIOPHARMACEUTICAL: 14.08 mCi of F-18 Fluorodeoxyglucose (FDG) I.V. via the right antecubital fossa. TECHNIQUE: Patient weight: 179 pounds. Following at least four-hour fasting, the patient's blood gluc ose was 108 mg/dl. Approximately 1 hour after administration of FDG, overlapping emission scanning w as performed from the orbital meatal line through the pelvis. A low-dose CT was performed for attenu ation correction purposes and anatomic localization. Fused images of PET and CT were reviewed. Any s tandardized uptake values (SUV) reported are maximum values within a volume region of interest, expre ssed in gm/ml. COMPARISON: Noncontrast CT chest of 08/06/2020, PET CT of 09/19/2018, chest CT with IV contrast 08/20/20. FINDINGS: PET: No abnormal FDG uptake in the included field of view suspicious for residual metabolically active dis ease. CT: The lobulated mass in the anterior right upper lobe evident on prior PET scan has been replaced by ba ndlike scar tissue. There is a residual 5 mm noncalcified nodule in the right middle lobe (image 131 of series 3) that could represent an interval pulmonary lymph node. It is essentially unchanged from 2 years ago (image 36 series 2 in 2018). Calcified right hilar lymph nodes are noted. No adenopathy. Largest mediastinal lymph node measures 1 0 mm at the precarinal tien station. Abdomen and pelvis show scattered hepatic and splenic calcified granulomas, post cholecystectomy surg ical changes, mild diffuse fullness to the left adrenal gland suggestive of hyperplasia, and superior pole right renal cyst measuring 2.8 cm. Bowel is unremarkable. Patient is status post hysterectomy. Bones show lower lumbar spinal posterior decompression and hardware fusion surgical changes and lower cervical ACDF surgical changes. No acute or aggressive appearing osseous lesions. IMPRESSION: Posttreatment scarring in the anterior right upper lobe with no evidence of residual or recurrent met abolically active malignancy. Electronically signed by: Huyen Aguirre MD (10/08/2020 1:57 PM) [id number]
== END ==
LOC: PETSC 09:55
PROVIDERS: ATTEND Internal Medicine Pulmonary Disease
DX: R91.8 Other nonspecific abnormal finding of lung field (principal); Z90.49 Acquired absence of other specified parts of digestive tract
CPT/HCPCS: 78815; A9552

== ENCOUNTER 2020-12-19 17:56 | Emergency (ER) | payer MEDICARE ==
[~2020-12-19] VITALS: Ht 162.6 cm; Wt 79.1 kg
[~2020-12-19 17:56] MED LIST changes: -PRED20TA PO
[2020-12-19] MEDS ORDERED: PRED20TA PO (18:48)
--- NOTE | 2020-12-19 18:48 | PHYS DOC ---
Past Medical History Past Medical History: COPD, Diabetes-Type II, Hypertension Additional Past Medical Histor: straight caths self Past Surgical History: Cholecystectomy, Hysterectomy, Other Additional Past Surgical Histo: BACK Smoking Status: Former Smoker Alcohol Use: None Drug Use: None General Adult EDM: Chief Complaint: LOWEREXTREMITY INJURY HPI: HPI: Patient is a 70 year old female with past medical history of left foot drop-- s/p back surgery for spinal stenosis 2 years ago presents for evaluation of weakness in her left wrist. Patient complains of left wrist drop. States onset 1.5 weeks ago-- wrist progressively weak. Patient able to move fingers -- fine motor movement intact. Patient denies headache, arm injury. NIHss - zero. Review of Systems: Review of Systems: Constitutional: Denies fever or chills. [] Eyes: Denies change in visual acuity. [] HENT: Denies nasal congestion or sore throat. [] Respiratory: Denies cough or shortness of breath. [] Cardiovascular: Denies chest pain or edema. [] GI: Denies abdominal pain, nausea, vomiting, bloody stools or diarrhea. [] : Denies dysuria. [] Musculoskeletal: Denies back pain or joint pain. [] Integument: Denies rash. [] Neurologic: Denies headache, focal weakness or sensory changes. [left wrist drop/wrist weakness] Endocrine: Denies polyuria or polydipsia. [] Lymphatic: Denies swollen glands. [] Psychiatric: Denies depression or anxiety. [] Heart Score: C/O Chest Pain: N/A Risk Factors: Risk Factors: DM, Current or recent (<one month) smoker, HTN, HLP, family history of CAD, obesity. Risk Scores: Score 0 - 3: 2.5% MACE over next 6 weeks - Discharge Home Score 4 - 6: 20.3% MACE over next 6 weeks - Admit for Clinical Observation Score 7 - 10: 72.7% MACE over next 6 weeks - Early Invasive Strategies Allergies: Allergies: Allergies Coded Allergies Type Severity Reaction Last Updated Verified ciprofloxacin Allergy Intermediate 06/18/18 Yes codeine Allergy Intermediate LORTAB OK 06/19/18 Yes Physical Exam: PE: Constitutional: Well developed, well nourished, no acute distress, non-toxic appearance. [] HENT: Normocephalic, atraumatic, bilateral external ears normal, oropharynx moist, no oral exudates, nose normal. [] Eyes: PERRLA, EOMI, conjunctiva normal, no discharge. [] Neck: Normal range of motion, no tenderness, supple, no stridor. [] Cardiovascular:Heart rate regular rhythm, no murmur [] Lungs & Thorax: Bilateral breath sounds clear to auscultation [] Abdomen: Bowel sounds normal, soft, no tenderness, no masses, no pulsatile masses. [] Skin: Warm, dry, no erythema, no rash. [] Back: No tenderness, no CVA tenderness. [] Extremities: No tenderness, no cyanosis, no clubbing, ROM intact, no edema. [left wrist at rest if fully flexed, patient with some ability to extended, fine more movement intact, able to make fist, NVI] Neurologic: Alert and oriented X 3, , Psychologic: Affect normal, judgement normal, mood normal. [] EKG: EKG: [] Radiology/Procedures: Radiology/Procedures: [] Course & Med Decision Making: Course & Med Decision Making Pertinent Labs and Imaging studies reviewed. (See chart for details) []Patient denies injury. Do not suspect stroke. Physical exam consisted with radial nerve palsy. Will rx prednisione. Will place in splint Refer to ortho/neurology Fatmata Disclaimer: Fatmata Disclaimer: This electronic medical record was generated, in whole or in part, using a voice recognition dictation system. Departure Departure Impression: Primary Impression: Wrist drop, left wrist Disposition: 01 DC HOME SELF CARE/HOMELESS Condition: STABLE Referrals: KATTY MICHAEL MD (PCP) LUIS MANUEL FAJARDO MD, TIMOTHY J MD Patient Instructions: Radial Nerve Palsy Scripts Prednisone (PREDNISONE) 20 Mg Tablet 1 TAB PO UD for 12 Days, #15 TAB Take 2 tabs days 1,2,3 1.5 tabs days 3,4,5 1 tab days 6,7,8 0.5 tab days 9,10,11 Prov: ALVINO NGUYEN DO 12/19/20 ALVINO NGUYEN DO Dec 19, 2020 18:48
[2020-12-19 18:58] VITALS: BP 167/86
== END 2020-12-19 19:20 | disposition home or self-care (01) ==
LOC: ER 17:56
DX: M21.332 Wrist drop, left wrist (principal); R53.1 Weakness; J44.9 Chronic obstructive pulmonary disease, unspecified; E11.9 Type 2 diabetes mellitus without complications; I10 Essential (primary) hypertension; Z87.891 Personal history of nicotine dependence; Z90.49 Acquired absence of other specified parts of digestive tract; Z90.710 Acquired absence of both cervix and uterus; Z98.890 Other specified postprocedural states; Z88.1 Allergy status to other antibiotic agents; Z88.5 Allergy status to narcotic agent
CPT/HCPCS: 29125; 99283

== ENCOUNTER → 2021-03-23 | Outpatient (CLI) | payer MEDICARE ==
[~2021-03-23] MED LIST changes: +PRED20TA PO
--- NOTE | 2021-03-23 16:55 | RAD ---
EXAM: CT CHEST WITHOUT CONTRAST HISTORY: Lung adenocarcinoma COMPARISON: PET/CT 10/08/[address] 08/06/2020 and 02/26/2020 TECHNIQUE: Helical CT of the chest performed without contrast. Coronal and sagittal reformats were o btained. One or more of the following individualized dose reduction techniques were utilized for this examinat ion: 1. Automated exposure control 2. Adjustment of the mA and/or kV according to patient size 3. Use of iterative reconstruction technique. FINDINGS: Thyroid gland and thoracic inlet: Unremarkable. Heart and great vessels: Heart is normal in size. There are coronary artery calcifications. No perica rdial effusion. Thoracic aorta is normal in caliber with mild calcified atherosclerosis. Mediastinum and alen: There are calcified right hilar lymph nodes. No lymphadenopathy. Lungs and pleura: A bandlike opacity in the inferior right upper lobe has not significantly changed. No definite residual mass. A pulmonary nodule in the posterior left upper lobe seen on 08/06/2020 has resolved. A few other scattered 3 to 4 mm pulmonary nodules are unchanged. No pleural effusion. Airw ays are clear. Chest wall and axillae: No axillary lymphadenopathy. Upper abdomen: Cholecystectomy. 3 cm simple cyst in the right kidney is unchanged. Mild left adrenal gland thickening unchanged. Bones: Unchanged moderate degenerative disc disease with disc osteophyte complexes from T3-T4 through T7-T8 resulting in canal narrowing. IMPRESSION: 1. Stable treatment changes in the right upper lobe. No definite recurrent malignancy. 2. Resolution of pulmonary nodule in the left upper lobe. A few other 3 to 4 mm pulmonary nodules ar e unchanged. Electronically signed by: Zoraida Celis MD (03/23/2021 4:52 PM) [id number]
== END ==
LOC: CT 13:07
PROVIDERS: ATTEND Radiology Radiation Oncology
DX: C34.81 Malignant neoplasm of overlapping sites of right bronchus and lung (principal); R91.8 Other nonspecific abnormal finding of lung field; I25.10 Atherosclerotic heart disease of native coronary artery without angina pectoris; I70.0 Atherosclerosis of aorta; N28.1 Cyst of kidney, acquired; M51.34 Other intervertebral disc degeneration, thoracic region; M25.78 Osteophyte, vertebrae; M48.04 Spinal stenosis, thoracic region; Z90.49 Acquired absence of other specified parts of digestive tract
CPT/HCPCS: 71250

== ENCOUNTER 2021-09-12 12:11 | Inpatient (IN) | payer MEDICARE ==
[~2021-09-12] VITALS: Ht 162.6 cm; Wt 84.5 kg
[2021-09-12] MEDS ORDERED: IPRATRPIUM/ALBUTEROL 0.5/2.5MG 3 ML NEBU. NEB ONE (12:45)
[2021-09-12] MEDS ORDERED: DEXAMETHASONE SOD PHOS 4 MG/ML VIAL IVP ONE (12:45)
[2021-09-12] MEDS ORDERED: ACETAMINOPHEN 500 MG TABLET PO ONE (12:45)
[2021-09-12] MEDS ORDERED: IV NORMAL SALINE 1000ML BAG 1,000 ML IV ONE (12:45)
--- NOTE | 2021-09-12 12:50 | PHYS DOC ---
Past Medical History Past Medical History: COPD, Diabetes-Type II, Hypertension Additional Past Medical Histor: straight caths self Past Surgical History: Cholecystectomy, Hysterectomy, Other Additional Past Surgical Histo: BACK Smoking Status: Current Every Day Smoker Alcohol Use: None Drug Use: None General Adult EDM: Chief Complaint: SHORTNESS OF BREATH HPI: HPI: Patient is a 71 year old female who presents with shortness of breath, fever, cough that started today. When EMS arrived patient was hypoxic and placed on 4 L nasal cannula. Patient does not normally wear oxygen at home during the day. Patient has been febrile. Temperature is 101.4. Patient has history of smoking. Patient is fully vaccinated for COVID-19. Patient's history of COPD, hypertension, CVA. Review of Systems: Review of Systems: Constitutional: Reports fever and chills Eyes: Denies change in visual acuity. [] HENT: Reports nasal congestion. Denies sore throat. Respiratory: Reports cough and shortness of breath. [] Cardiovascular: Denies chest pain or edema. [] GI: Denies abdominal pain, nausea, vomiting, bloody stools or diarrhea. [] : Denies dysuria. [] Musculoskeletal: Denies back pain or joint pain. [] Integument: Denies rash. [] Neurologic: Denies headache, focal weakness or sensory changes. [] Endocrine: Denies polyuria or polydipsia. [] Lymphatic: Denies swollen glands. [] Psychiatric: Denies depression or anxiety. [] Heart Score: C/O Chest Pain: No Risk Factors: Risk Factors: DM, Current or recent (<one month) smoker, HTN, HLP, family hi story of CAD, obesity. Risk Scores: Score 0 - 3: 2.5% MACE over next 6 weeks - Discharge Home Score 4 - 6: 20.3% MACE over next 6 weeks - Admit for Clinical Observation Score 7 - 10: 72.7% MACE over next 6 weeks - Early Invasive Strategies Allergies: Allergies: Allergies Coded Allergies Type Severity Reaction Last Updated Verified ciprofloxacin Allergy Intermediate 06/18/18 Yes codeine Allergy Intermediate LORTAB OK 06/19/18 Yes Physical Exam: PE: Constitutional: Well developed, well nourished, no acute distress, non-toxic appearance. [] HENT: Normocephalic, atraumatic, bilateral external ears normal, oropharynx moist, no oral exudates, nose normal. [] Eyes: PERRLA, EOMI, conjunctiva normal, no discharge. [] Neck: Normal range of motion, no tenderness, supple, no stridor. [] Cardiovascular:Heart rate sinus tachycardia,, no murmur [] Lungs & Thorax: Bilateral breath sounds clear to auscultation [] Abdomen: Bowel sounds normal, soft, no tenderness, no masses, no pulsatile masses. [] Skin: Warm, dry, no erythema, no rash. [] Back: No tenderness, no CVA tenderness. [] Extremities: No tenderness, no cyanosis, no clubbing, ROM intact, no edema. [] Neurologic: Alert and oriented X 3, normal motor function, normal sensory function, no focal deficits noted. [] Psychologic: Affect normal, judgement normal, mood normal. [] EKG: EKG: [] Radiology/Procedures: Radiology/Procedures: []EXAM: Chest, single view. HISTORY: Cough. COMPARISON: CT dated 03/23/2021. FINDINGS: A frontal view of the chest is obtained. There is stable focal opacity within the right midlung likely corresponding with suspected scarring along the right minor fissure demonstrated on the recent CT. There is no pleural effusion or pneumothorax. The heart is normal in size. IMPRESSION: Stable suspected scarring along the right minor fissure. Electronically signed by: Parul Roldan MD (09/12/2021 1:37 PM) [id number] Course & Med Decision Making: Course & Med Decision Making Pertinent Labs and Imaging studies reviewed. (See chart for details) [] 71-year-old female presents with cough, fever this for this morning. Work-up in ER consisted of labs, UA, chest x-ray, EKG, Covid and influenza test. Patient is febrile on arrival, 101.4. Patient is hypoxic, oxygen level 88%. Patient was placed on 3 L nasal cannula. Oxygen at 98% with O2. Patient was also sinus tachycardia on arrival, heart rate 110. Patient given 1 g of Tylenol to treat fever along with normal saline bolus. Temperature and heart rate have both improved after administration of Tylenol. Patient is unable to be placed on room air. O2 dropped down to mid 80s. Patient placed back on 3L , and maintaining at 95 to 97%. All other labs are unremarkable. Chest x-ray is unremarkable. Covid and influenza tests are both negative. UA is positive for large leukocytes. Greater than 40 WBCs. Rocephin started. Discussed all results with patient. Advised patient she would need to be admitted to the hospital for further treatment and management. Patient agrees with admission plan Spoke to Dr. Ashraf who will be admitting patient for COPD exacerbation, hypoxia, UTI. Based on sepsis criteria, patient does not meet sepsis protocol. Fatmata Disclaimer: Fatmata Disclaimer: This electronic medical record was generated, in whole or in part, using a voice recognition dictation system. Departure Departure Impression: Primary Impression: COPD exacerbation Additional Impressions: Hypoxia UTI (urinary tract infection) Qualified Codes: N30.00 - Acute cystitis without hematuria Disposition: HOME / SELF CARE / HOMELESS Admitting Physician: ANDER Condition: STABLE Referrals: KATTY MICHAEL MD (PCP) EKTA BAUM APRN Sep 12, 2021 12:50
[2021-09-12 13:35] LABS: INFLUENZA A PATIENT NEGATIVE (NEGATIVE); INFLUENZA B PATIENT NEGATIVE (NEGATIVE)
--- NOTE | 2021-09-12 13:39 | RAD ---
EXAM: Chest, single view. HISTORY: Cough. COMPARISON: CT dated 03/23/2021. FINDINGS: A frontal view of the chest is obtained. There is stable focal opacity within the right mid lung likely corresponding with suspected scarring along the right minor fissure demonstrated on the r ecent CT. There is no pleural effusion or pneumothorax. The heart is normal in size. IMPRESSION: Stable suspected scarring along the right minor fissure. Electronically signed by: Parul Roldan MD (09/12/2021 1:37 PM) [id number]
[2021-09-12 14:17] LABS: BASO % 0 % (0-3); EOS # 0.2 x10^3/uL (0.0-0.7); EOS % 2 % (0-3); HEMATOCRIT 34.7 % (36.0-47.0); HEMOGLOBIN 11.1 g/dL (12.0-15.5); LYMPH # 0.4 x10^3/uL (1.0-4.8); LYMPH % 4 % (24-48); MEAN CORPUSCULAR HEMOGLOBIN 28 pg (25-35); MEAN CORPUSCULAR HGB CONC 32 g/dL (31-37); MEAN CORPUSCULAR VOLUME 88 fL (79-100); MONO # 0.7 x10^3/uL (0.0-1.1); MONO % 8 % (0-9); NEUT # 8.5 x10^3/uL (1.8-7.7); NEUT % 87 % (31-73); PLATELET COUNT 190 x10^3/uL (140-400); RED BLOOD COUNT 3.95 x10^6/uL (3.50-5.40); RED CELL DISTRIBUTION WIDTH 15.1 % (11.5-14.5); WHITE BLOOD COUNT 9.8 x10^3/uL (4.0-11.0)
[2021-09-12 15:25] LABS: CALCIUM 8.3 mg/dL (8.5-10.1); CREATININE 0.7 mg/dL (0.6-1.0); GFR 100.1
[2021-09-12 15:30] LABS: ALBUMIN 3.2 g/dL (3.4-5.0); ALBUMIN/GLOBULIN RATIO 0.8 (1.0-1.7); C-REACTIVE PROTEIN 13.6 mg/L (0-3.3); MAGNESIUM 2.1 mg/dL (1.8-2.4); TOTAL BILIRUBIN 0.3 mg/dL (0.2-1.0)
[2021-09-12 15:33] LABS: % LYMPHS 1 % (24-48); % MONOS 4 % (0-10); % SEGS 95 % (35-66); PLT ESTIMATE ADEQUATE (ADEQUATE)
[2021-09-12 15:34] LABS: OVALOCYTES FEW; TOXIC GRANULATION SLIGHT
[2021-09-12 15:35] LABS: TOXIC VACUOLATION SLIGHT
[2021-09-12 15:56] LABS: BILIRUBIN,URINE NEGATIVE (NEG); CLARITY,URINE CLOUDY; COLOR,URINE YELLOW; NITRITE,URINE NEGATIVE (NEG); PROTEIN,URINE 30 mg/dL (NEG-TRACE)
[2021-09-12 16:25] LABS: WBC,URINE >40 /HPF (0-4)
[2021-09-12 16:26] LABS: BACTERIA,URINE MODERATE /HPF (0-FEW)
[2021-09-12 16:33] LABS: TRICHOMONAS,URINE PRESENT
[2021-09-12 16:35] LABS: AMORPHOUS SEDIMENT,UR PRESENT /HPF
[2021-09-12] MEDS ORDERED: cefTRIAXone IV Push 1 GM VIAL. IVP ONE (17:00)
--- NOTE | 2021-09-12 17:59 | PDOC1 ---
History and Physical Date of Service: DOS: DATE: 09/12/21 TIME: 17:58 Chief Complaint: Chief Complain: Shortness of Breath History of Present Illness: HPI: History obtained from discussion with the ED physician and chart review 71-year-old female with past medical history of COPD, diabetes mellitus type 2, hypertension who presents with shortness of breath, fever and cough that started today. Patient was hypoxic at 85% on room air and was started on 4 L nasal cannula with EMS and improved to 90%. In the ED patient was found to have a temperature of 101.4. Patient is vaccinated for COVID-19. Past Medical/Surgical History: PMH/PSH: Past Medical History: COPD, Diabetes-Type II, Hypertension, straight caths self Past Surgical History: Cholecystectomy, Hysterectomy, BACK Allergies: Allergies: Coded Allergies: ciprofloxacin (Verified Allergy, Intermediate, 06/18/18) codeine (Verified Allergy, Intermediate, LORTAB [place], 06/19/18) iodine (Verified Allergy, Intermediate, Rash, 09/12/21) Social History: Social History: Smoking Status: Current Every Day Smoker Alcohol Use: None Drug Use: None Current Medications: Current Medications Current Medications Acetaminophen (Tylenol) 1,000 mg 1X ONCE PO Last administered on 09/12/21at 13:05; Start 09/12/21 at 12:45; Stop 09/12/21 at 12:46; Status DC Sodium Chloride 1,000 ml @ 1,000 mls/hr 1X ONCE IV Last administered on 09/12/21at 13:06; Start 09/12/21 at 12:45; Stop 09/12/21 at 13:44; Status DC Dexamethasone Sodium Phosphate (Decadron) 10 mg 1X ONCE IVP Last administered on 09/12/21at 13:04; Start 09/12/21 at 12:45; Stop 09/12/21 at 12:46; Status DC Albuterol/ Ipratropium (Duoneb) 3 ml 1X ONCE NEB Last administered on 09/12/21at 13:08; Start 09/12/21 at 12:45; Stop 09/12/21 at 12:46; Status DC Ceftriaxone Sodium (Rocephin) 1 gm 1X ONCE IVP ; Start 09/12/21 at 17:00; Stop 09/12/21 at 17:01; Status DC Active Scripts Active Prednisone 20 Mg Tablet 1 Tab PO UD 12 Days Take 2 tabs days 1,2,3 1.5 tabs days 3,4,5 1 tab days 6,7,8 0.5 tab days 9,10,11 Reported Trelegy Ellipta 100-62.5-25 (Fluticasone/Umeclidin/Vilanter) 1 Each Blst.w.dev 1 Each IH DAILY Gabapentin (Gabapentin) 400 Mg Capsule 400 Mg PO BID Losartan Potassium 100 Mg Tablet 100 Mg PO DAILY Coreg (Carvedilol) 12.5 Mg Tablet 12.5 Mg PO DAILY Amlodipine Besylate 10 Mg Tablet 10 Mg PO DAILY ROS: Review of Systems Review of System REVIEW OF SYSTEMS: GENERAL: Denies weakness SKIN: No bruising, hair changes or rashes. EYES: No blurred, double or loss of vision. NOSE AND THROAT: No history of nosebleeds, hoarseness or sore throat. HEART: No history of palpitations, chest pain or shortness of breath on exertion. LUNGS: Denies cough, hemoptysis, wheezing or shortness of breath. GASTROINTESTINAL: Denies changes in appetite, nausea, vomiting, diarrhea or constipation. GENITOURINARY: No history of frequency, urgency, hesitancy or nocturia. NEUROLOGIC: Denies history of numbness, tingling, or tremor. PSYCHIATRIC: No history of panic, anxiety or depression. ENDOCRINE: No history of heat or cold intolerance, polyuria or polydipsia. EXTREMITIES: Denies joint pain, pain on walking or stiffness. Physical Exam: Vital Signs: Vital Signs Date Time Temp Pulse Resp B/P (MAP) Pulse Ox O2 Delivery O2 Flow Rate FiO2 09/12/21 13:08 95 Nasal Cannula 3.0 09/12/21 12:20 101.4 113 32 132/85 (101) 101.4 Physcial Exam: GEN: No apparent distress. Alert and oriented HEENT: Normal cephalic, atraumatic, external auditory canals are patent EYES: Extraocular muscles are intact, pupil are equally round and reactive to light and accommodation MUSCULOSKELETAL: Well developed , well nourished, good range of motion ENDOCRINE: No thyromegaly was palpated LYMPHATICS: No cervical chain or axillary nodes were noted HEMATOPOIETIC: No bruising NECK: Supple, no JVD, no thyromegaly was noted LUNGS: Clear to auscultation in all lung [place] without rhonchi or wheezing HEART: RRR, S!, S2 present. Peripheral pulses intact, no obvious murmurs noted ABDOMEN: Soft, nontender. Positive bowel sounds, no organomegaly, normal bowel sounds EXTREMITIES: Without clubbing, cyanosis, or edema. Pedal pulses intact. Negative Homans sign NEUROLOGIC: Normal speech and tone. A&O x 3, moves all extremities, no obvious focal deficits PSYCHIATRIC: Normal affect, normal mood. Stable SKIN: No ulcerations or rashes, good skin turgor, no jaundice VASCULAR: Good capillary refill, neurovascular bundle appears to be intact Labs: Labs: Laboratory Tests Test 09/12/21 13:08 09/12/21 13:55 09/12/21 15:10 09/12/21 15:48 Influenza Type A Antigen Negative (NEGATIVE) Influenza Type B Antigen Negative (NEGATIVE) SARS-CoV-2 Antigen (Rapid) Negative (NEGATIVE) White Blood Count 9.8 x10^3/uL (4.0-11.0) Red Blood Count 3.95 x10^6/uL (3.50-5.40) Hemoglobin 11.1 g/dL (12.0-15.5) Hematocrit 34.7 % (36.0-47.0) Mean Corpuscular Volume 88 fL (79-100) Mean Corpuscular Hemoglobin 28 pg (25-35) Mean Corpuscular Hemoglobin Concent 32 g/dL (31-37) Red Cell Distribution Width 15.1 % (11.5-14.5) Platelet Count 190 x10^3/uL (140-400) Neutrophils (%) (Auto) 87 % (31-73) Lymphocytes (%) (Auto) 4 % (24-48) Monocytes (%) (Auto) 8 % (0-9) Eosinophils (%) (Auto) 2 % (0-3) Basophils (%) (Auto) 0 % (0-3) Neutrophils # (Auto) 8.5 x10^3/uL (1.8-7.7) Lymphocytes # (Auto) 0.4 x10^3/uL (1.0-4.8) Monocytes # (Auto) 0.7 x10^3/uL (0.0-1.1) Eosinophils # (Auto) 0.2 x10^3/uL (0.0-0.7) Basophils # (Auto) 0.0 x10^3/uL (0.0-0.2) Segmented Neutrophils % 95 % (35-66) Lymphocytes % 1 % (24-48) Monocytes % 4 % (0-10) Toxic Granulation Slight Toxic Vacuolation Slight Platelet Estimate Adequate (ADEQUATE) Large Platelets Occ Ovalocytes Few Sodium Level 146 mmol/L (136-145) Potassium Level 4.0 mmol/L (3.5-5.1) Chloride Level 109 mmol/L (98-107) Carbon Dioxide Level 25 mmol/L (21-32) Anion Gap 12 (6-14) Blood Urea Nitrogen 19 mg/dL (7-20) Creatinine 0.7 mg/dL (0.6-1.0) Estimated GFR (Cockcroft-Gault) 100.1 BUN/Creatinine Ratio 27 (6-20) Glucose Level 105 mg/dL (70-99) Lactic Acid Level 1.9 mmol/L (0.4-2.0) Calcium Level 8.3 mg/dL (8.5-10.1) Magnesium Level 2.1 mg/dL (1.8-2.4) Total Bilirubin 0.3 mg/dL (0.2-1.0) Aspartate Amino Transf (AST/SGOT) 16 U/L (15-37) Alanine Aminotransferase (ALT/SGPT) 14 U/L (14-59) Alkaline Phosphatase 82 U/L (46-116) Lactate Dehydrogenase 248 U/L (81-234) Creatine Kinase 119 U/L (26-192) C-Reactive Protein, Quantitative 13.6 mg/L (0-3.3) Total Protein 7.0 g/dL (6.4-8.2) Albumin 3.2 g/dL (3.4-5.0) Albumin/Globulin Ratio 0.8 (1.0-1.7) D-Dimer (Natali) 0.37 ug/mlFEU (0.00-0.50) Urine Collection Type Unknown Urine Color Yellow Urine Clarity Cloudy Urine pH 7.0 (<5.0-8.0) Urine Specific [place] 1.015 (1.000-1.030) Urine Protein 30 mg/dL (NEG-TRACE) Urine Glucose (UA) Negative mg/dL (NEG) Urine Ketones (Stick) Negative mg/dL (NEG) Urine Blood Small (NEG) Urine Nitrite Negative (NEG) Urine Bilirubin Negative (NEG) Urine Urobilinogen Dipstick 1.0 mg/dL (0.2 mg/dL) Urine Leukocyte Esterase Large (NEG) Urine RBC 3-5 /HPF (0-2) Urine WBC >40 /HPF (0-4) Urine Squamous Epithelial Cells Occ /LPF Urine Amorphous Sediment Present /HPF Urine Bacteria Moderate /HPF (0-FEW) Urine Mucus Slight /LPF Urine Trichomonas Present Laboratory Tests Test 09/12/21 13:08 09/12/21 13:55 09/12/21 15:10 09/12/21 15:48 Influenza Type A Antigen Negative (NEGATIVE) Influenza Type B Antigen Negative (NEGATIVE) SARS-CoV-2 Antigen (Rapid) Negative (NEGATIVE) White Blood Count 9.8 x10^3/uL (4.0-11.0) Red Blood Count 3.95 x10^6/uL (3.50-5.40) Hemoglobin 11.1 g/dL (12.0-15.5) Hematocrit 34.7 % (36.0-47.0) Mean Corpuscular Volume 88 fL (79-100) Mean Corpuscular Hemoglobin 28 pg (25-35) Mean Corpuscular Hemoglobin Concent 32 g/dL (31-37) Red Cell Distribution Width 15.1 % (11.5-14.5) Platelet Count 190 x10^3/uL (140-400) Neutrophils (%) (Auto) 87 % (31-73) Lymphocytes (%) (Auto) 4 % (24-48) Monocytes (%) (Auto) 8 % (0-9) Eosinophils (%) (Auto) 2 % (0-3) Basophils (%) (Auto) 0 % (0-3) Neutrophils # (Auto) 8.5 x10^3/uL (1.8-7.7) Lymphocytes # (Auto) 0.4 x10^3/uL (1.0-4.8) Monocytes # (Auto) 0.7 x10^3/uL (0.0-1.1) Eosinophils # (Auto) 0.2 x10^3/uL (0.0-0.7) Basophils # (Auto) 0.0 x10^3/uL (0.0-0.2) Segmented Neutrophils % 95 % (35-66) Lymphocytes % 1 % (24-48) Monocytes % 4 % (0-10) Toxic Granulation Slight Toxic Vacuolation Slight Platelet Estimate Adequate (ADEQUATE) Large Platelets Occ Ovalocytes Few Sodium Level 146 mmol/L (136-145) Potassium Level 4.0 mmol/L (3.5-5.1) Chloride Level 109 mmol/L (98-107) Carbon Dioxide Level 25 mmol/L (21-32) Anion Gap 12 (6-14) Blood Urea Nitrogen 19 mg/dL (7-20) Creatinine 0.7 mg/dL (0.6-1.0) Estimated GFR (Cockcroft-Gault) 100.1 BUN/Creatinine Ratio 27 (6-20) Glucose Level 105 mg/dL (70-99) Lactic Acid Level 1.9 mmol/L (0.4-2.0) Calcium Level 8.3 mg/dL (8.5-10.1) Magnesium Level 2.1 mg/dL (1.8-2.4) Total Bilirubin 0.3 mg/dL (0.2-1.0) Aspartate Amino Transf (AST/SGOT) 16 U/L (15-37) Alanine Aminotransferase (ALT/SGPT) 14 U/L (14-59) Alkaline Phosphatase 82 U/L (46-116) Lactate Dehydrogenase 248 U/L (81-234) Creatine Kinase 119 U/L (26-192) C-Reactive Protein, Quantitative 13.6 mg/L (0-3.3) Total Protein 7.0 g/dL (6.4-8.2) Albumin 3.2 g/dL (3.4-5.0) Albumin/Globulin Ratio 0.8 (1.0-1.7) D-Dimer (Natali) 0.37 ug/mlFEU (0.00-0.50) Urine Collection Type Unknown Urine Color Yellow Urine Clarity Cloudy Urine pH 7.0 (<5.0-8.0) Urine Specific [place] 1.015 (1.000-1.030) Urine Protein 30 mg/dL (NEG-TRACE) Urine Glucose (UA) Negative mg/dL (NEG) Urine Ketones (Stick) Negative mg/dL (NEG) Urine Blood Small (NEG) Urine Nitrite Negative (NEG) Urine Bilirubin Negative (NEG) Urine Urobilinogen Dipstick 1.0 mg/dL (0.2 mg/dL) Urine Leukocyte Esterase Large (NEG) Urine RBC 3-5 /HPF (0-2) Urine WBC >40 /HPF (0-4) Urine Squamous Epithelial Cells Occ /LPF Urine Amorphous Sediment Present /HPF Urine Bacteria Moderate /HPF (0-FEW) Urine Mucus Slight /LPF Urine Trichomonas Present Images: Images PROCEDURE: CHEST AP ONLY EXAM: Chest, single view. HISTORY: Cough. COMPARISON: CT dated 03/23/2021. FINDINGS: A frontal view of the chest is obtained. There is stable focal opacity within the right midlung likely corresponding with suspected scarring along the right minor fissure demonstrated on the recent CT. There is no pleural effusion or pneumothorax. The heart is normal in size. IMPRESSION: Stable suspected scarring along the right minor fissure. Assessment/Plan Assessment/Plan Acute hypoxic respiratory failure secondary to COPD exacerbation Acute COPD exacerbation Acute cystitis Acute electrolyte derangement suggestive of dehydrationhypernatremia, hyperchloremia Super super morbid obesity History of diabetes mellitus type 2 History of COPD History of hypertension Admit to hospitalist service for further management Pulmonology consult Continue IV steroids Continue empiric IV antibiotics Pending urine cultures and await for S&S Lovenox for DVT prophylaxis Protonix while on steroids GI prophylaxis ADA diet CODE STATUS assumed full code Discussed with RN and SW Disposition inpatient management as above DPOA: Beena Rosas In addition to my E/M visit, advance care planning done with A total time of 20 minutes was spent from 5:00 to 520 face to face in discussion regarding the patient's goals of care, CODE STATUS. Justifications for Admission Other Justification TYSON APPIAH MD Sep 12, 2021 17:59
[2021-09-12] MEDS ORDERED: SENNOSIDES 8.6 MG TABLET PO PRN (18:00)
[2021-09-12] MEDS ORDERED: DOCUSATE SODIUM 100 MG CAPSULE. PO PRN (18:00)
[2021-09-12] MEDS ORDERED: diphenhydrAMINE HCL 25 MG CAPSULE PO PRN ×2 (18:00)
[2021-09-12] MEDS ORDERED: diphenhydrAMINE 50 MG/ML VIAL IVP PRN (18:00)
[2021-09-12] MEDS ORDERED: DEXTROSE 50% 25 GM / 50ML DISP.SYRIN. IV PRN ×2 (18:00→20:45)
[2021-09-12] MEDS ORDERED: LORazepam 0.5 MG TABLET PO PRN (18:00)
[2021-09-12] MEDS ORDERED: PROCHLORPERAZINE 10 MG/2 ML VIAL. IV PRN (18:00)
[2021-09-12] MEDS ORDERED: ZOLPIDEM 5 MG TABLET. PO PRN ×2 (18:00)
[2021-09-12] MEDS ORDERED: ONDANSETRON PF 4 MG/2 ML VIAL. IVP PRN (18:00)
[2021-09-12 18:56] VITALS: BP 145/64
[2021-09-12 19:00] VITALS: BP 184/97
[2021-09-12] MEDS ORDERED: IPRATRPIUM/ALBUTEROL 0.5/2.5MG 3 ML NEBU. NEB SCH (20:00)
[2021-09-12] MEDS: INSULIN LISPRO 300 UNITS/3 ML VIAL. SQ SCH (21:00)
[2021-09-12] MEDS: ACETAMINOPHEN 325 MG TABLET. PO PRN (21:14)
[2021-09-12] MEDS: methylPREDNISolone SOD SUCC PF 40 MG/ML VIAL. IV SCH (21:15)
[2021-09-12] MEDS: ENOXAPARIN 40 MG/0.4 ML SYRINGE. SQ SCH (21:15)
[2021-09-12] MEDS ORDERED: MELA10TA2 PO (22:00)
[2021-09-12 23:00] VITALS: BP 184/97
[2021-09-13 03:00] VITALS: BP 178/96
[2021-09-13] MEDS: ACETAMINOPHEN 325 MG TABLET. PO PRN (03:48)
[2021-09-13] MEDS ORDERED: PROAIR RESPICL90 MCG (04:09)
[2021-09-13] MEDS: methylPREDNISolone SOD SUCC PF 40 MG/ML VIAL. IV SCH ×3 (05:39→20:50)
[2021-09-13 07:00] VITALS: BP 133/51
[2021-09-13] MEDS: IPRATROPIUM/ALBUTEROL 20/100mcg/INH INHALER. INH SCH ×4 (07:59→20:51)
[2021-09-13] MEDS: PANTOPRAZOLE 40 MG TABLET.DR. PO SCH (07:59)
--- NOTE | 2021-09-13 08:21 | PDOC ---
PULMONARY PROGRESS NOTES DATE: 09/13/21 TIME: 08:20 Vitals Vital Signs Date Time Temp Pulse Resp B/P (MAP) Pulse Ox O2 Delivery O2 Flow Rate FiO2 09/13/21 03:00 98.0 88 20 178/96 (123) 100 Nasal Cannula 3.0 98.0 Lungs: Clear Cardiovascular: S1, S2 Abdomen: Soft Extremities: No Edema Labs Laboratory Tests Test 09/12/21 13:08 09/12/21 13:55 09/12/21 15:10 09/12/21 15:48 Influenza Type A Antigen Negative (NEGATIVE) Influenza Type B Antigen Negative (NEGATIVE) SARS-CoV-2 Antigen (Rapid) Negative (NEGATIVE) White Blood Count 9.8 x10^3/uL (4.0-11.0) Red Blood Count 3.95 x10^6/uL (3.50-5.40) Hemoglobin 11.1 g/dL (12.0-15.5) Hematocrit 34.7 % (36.0-47.0) Mean Corpuscular Volume 88 fL (79-100) Mean Corpuscular Hemoglobin 28 pg (25-35) Mean Corpuscular Hemoglobin Concent 32 g/dL (31-37) Red Cell Distribution Width 15.1 % (11.5-14.5) Platelet Count 190 x10^3/uL (140-400) Neutrophils (%) (Auto) 87 % (31-73) Lymphocytes (%) (Auto) 4 % (24-48) Monocytes (%) (Auto) 8 % (0-9) Eosinophils (%) (Auto) 2 % (0-3) Basophils (%) (Auto) 0 % (0-3) Neutrophils # (Auto) 8.5 x10^3/uL (1.8-7.7) Lymphocytes # (Auto) 0.4 x10^3/uL (1.0-4.8) Monocytes # (Auto) 0.7 x10^3/uL (0.0-1.1) Eosinophils # (Auto) 0.2 x10^3/uL (0.0-0.7) Basophils # (Auto) 0.0 x10^3/uL (0.0-0.2) Segmented Neutrophils % 95 % (35-66) Lymphocytes % 1 % (24-48) Monocytes % 4 % (0-10) Toxic Granulation Slight Toxic Vacuolation Slight Platelet Estimate Adequate (ADEQUATE) Large Platelets Occ Ovalocytes Few Sodium Level 146 mmol/L (136-145) Potassium Level 4.0 mmol/L (3.5-5.1) Chloride Level 109 mmol/L (98-107) Carbon Dioxide Level 25 mmol/L (21-32) Anion Gap 12 (6-14) Blood Urea Nitrogen 19 mg/dL (7-20) Creatinine 0.7 mg/dL (0.6-1.0) Estimated GFR (Cockcroft-Gault) 100.1 BUN/Creatinine Ratio 27 (6-20) Glucose Level 105 mg/dL (70-99) Lactic Acid Level 1.9 mmol/L (0.4-2.0) Calcium Level 8.3 mg/dL (8.5-10.1) Magnesium Level 2.1 mg/dL (1.8-2.4) Total Bilirubin 0.3 mg/dL (0.2-1.0) Aspartate Amino Transf (AST/SGOT) 16 U/L (15-37) Alanine Aminotransferase (ALT/SGPT) 14 U/L (14-59) Alkaline Phosphatase 82 U/L (46-116) Lactate Dehydrogenase 248 U/L (81-234) Creatine Kinase 119 U/L (26-192) C-Reactive Protein, Quantitative 13.6 mg/L (0-3.3) Total Protein 7.0 g/dL (6.4-8.2) Albumin 3.2 g/dL (3.4-5.0) Albumin/Globulin Ratio 0.8 (1.0-1.7) D-Dimer (Natali) 0.37 ug/mlFEU (0.00-0.50) Urine Collection Type Unknown Urine Color Yellow Urine Clarity Cloudy Urine pH 7.0 (<5.0-8.0) Urine Specific [place] 1.015 (1.000-1.030) Urine Protein 30 mg/dL (NEG-TRACE) Urine Glucose (UA) Negative mg/dL (NEG) Urine Ketones (Stick) Negative mg/dL (NEG) Urine Blood Small (NEG) Urine Nitrite Negative (NEG) Urine Bilirubin Negative (NEG) Urine Urobilinogen Dipstick 1.0 mg/dL (0.2 mg/dL) Urine Leukocyte Esterase Large (NEG) Urine RBC 3-5 /HPF (0-2) Urine WBC >40 /HPF (0-4) Urine Squamous Epithelial Cells Occ /LPF Urine Amorphous Sediment Present /HPF Urine Bacteria Moderate /HPF (0-FEW) Urine Mucus Slight /LPF Urine Trichomonas Present Test 09/12/21 21:51 Glucose (Fingerstick) 163 mg/dL (70-99) Laboratory Tests Test 09/12/21 13:08 09/12/21 13:55 09/12/21 15:10 09/12/21 15:48 Influenza Type A Antigen Negative (NEGATIVE) Influenza Type B Antigen Negative (NEGATIVE) SARS-CoV-2 Antigen (Rapid) Negative (NEGATIVE) White Blood Count 9.8 x10^3/uL (4.0-11.0) Red Blood Count 3.95 x10^6/uL (3.50-5.40) Hemoglobin 11.1 g/dL (12.0-15.5) Hematocrit 34.7 % (36.0-47.0) Mean Corpuscular Volume 88 fL (79-100) Mean Corpuscular Hemoglobin 28 pg (25-35) Mean Corpuscular Hemoglobin Concent 32 g/dL (31-37) Red Cell Distribution Width 15.1 % (11.5-14.5) Platelet Count 190 x10^3/uL (140-400) Neutrophils (%) (Auto) 87 % (31-73) Lymphocytes (%) (Auto) 4 % (24-48) Monocytes (%) (Auto) 8 % (0-9) Eosinophils (%) (Auto) 2 % (0-3) Basophils (%) (Auto) 0 % (0-3) Neutrophils # (Auto) 8.5 x10^3/uL (1.8-7.7) Lymphocytes # (Auto) 0.4 x10^3/uL (1.0-4.8) Monocytes # (Auto) 0.7 x10^3/uL (0.0-1.1) Eosinophils # (Auto) 0.2 x10^3/uL (0.0-0.7) Basophils # (Auto) 0.0 x10^3/uL (0.0-0.2) Segmented Neutrophils % 95 % (35-66) Lymphocytes % 1 % (24-48) Monocytes % 4 % (0-10) Toxic Granulation Slight Toxic Vacuolation Slight Platelet Estimate Adequate (ADEQUATE) Large Platelets Occ Ovalocytes Few Sodium Level 146 mmol/L (136-145) Potassium Level 4.0 mmol/L (3.5-5.1) Chloride Level 109 mmol/L (98-107) Carbon Dioxide Level 25 mmol/L (21-32) Anion Gap 12 (6-14) Blood Urea Nitrogen 19 mg/dL (7-20) Creatinine 0.7 mg/dL (0.6-1.0) Estimated GFR (Cockcroft-Gault) 100.1 BUN/Creatinine Ratio 27 (6-20) Glucose Level 105 mg/dL (70-99) Lactic Acid Level 1.9 mmol/L (0.4-2.0) Calcium Level 8.3 mg/dL (8.5-10.1) Magnesium Level 2.1 mg/dL (1.8-2.4) Total Bilirubin 0.3 mg/dL (0.2-1.0) Aspartate Amino Transf (AST/SGOT) 16 U/L (15-37) Alanine Aminotransferase (ALT/SGPT) 14 U/L (14-59) Alkaline Phosphatase 82 U/L (46-116) Lactate Dehydrogenase 248 U/L (81-234) Creatine Kinase 119 U/L (26-192) C-Reactive Protein, Quantitative 13.6 mg/L (0-3.3) Total Protein 7.0 g/dL (6.4-8.2) Albumin 3.2 g/dL (3.4-5.0) Albumin/Globulin Ratio 0.8 (1.0-1.7) D-Dimer (Natali) 0.37 ug/mlFEU (0.00-0.50) Urine Collection Type Unknown Urine Color Yellow Urine Clarity Cloudy Urine pH 7.0 (<5.0-8.0) Urine Specific [place] 1.015 (1.000-1.030) Urine Protein 30 mg/dL (NEG-TRACE) Urine Glucose (UA) Negative mg/dL (NEG) Urine Ketones (Stick) Negative mg/dL (NEG) Urine Blood Small (NEG) Urine Nitrite Negative (NEG) Urine Bilirubin Negative (NEG) Urine Urobilinogen Dipstick 1.0 mg/dL (0.2 mg/dL) Urine Leukocyte Esterase Large (NEG) Urine RBC 3-5 /HPF (0-2) Urine WBC >40 /HPF (0-4) Urine Squamous Epithelial Cells Occ /LPF Urine Amorphous Sediment Present /HPF Urine Bacteria Moderate /HPF (0-FEW) Urine Mucus Slight /LPF Urine Trichomonas Present Test 09/12/21 21:51 Glucose (Fingerstick) 163 mg/dL (70-99) Medications Active Scripts Medications Dose Route/Sig Max Daily Dose Days Date Category Dose Instructions Proair Respiclick (Albuterol Sulfate) 90 Mcg Aer.pow.ba Unknown Dose PRN PRN 09/13/21 Reported Melatonin 10 Mg Tab.mphase 10 Mg PO PRN PRN 09/12/21 Reported Prednisone 20 Mg Tablet 1 Tab PO UD 12 12/19/20 Rx Take 2 tabs days 1,2,3 1.5 tabs days 3,4,5 1 tab days 6,7,8 0.5 tab days 9,10,11 Trelegy Ellipta 100-62.5-25 (Fluticasone/Umeclidin/Vilanter) 1 Each Blst.w.dev 1 Each IH DAILY 08/12/19 Reported Gabapentin (Gabapentin) 400 Mg Capsule 400 Mg PO BID 08/12/19 Reported Losartan Potassium 100 Mg Tablet 100 Mg PO DAILY 08/12/19 Reported Coreg (Carvedilol) 12.5 Mg Tablet 12.5 Mg PO DAILY 02/17/19 Reported Amlodipine Besylate 10 Mg Tablet 10 Mg PO DAILY 06/19/18 Reported Impression . Full consult dictated Acute exacerbation of COPD Acute hypoxemic respiratory failure Discharge home [place] the [facility] [place] [facility] [place] Follow-up in the office in October BEATRIS MORRISON MD Sep 13, 2021 08:21
--- NOTE | 2021-09-13 09:31 | PDOC ---
PROGRESS NOTES Date of Service: DATE: 09/13/21 TIME: 09:29 Subjective Subjective headache Objective Objective Vital Signs Date Time Temp Pulse Resp B/P (MAP) Pulse Ox O2 Delivery O2 Flow Rate FiO2 09/13/21 08:20 Nasal Cannula 5.0 09/13/21 03:00 98.0 88 20 178/96 (123) 100 98.0 Intake and Output 09/13/21 07:00 Intake Total 200 ml Balance 200 ml Intake Oral 200 ml # Voids 1 Physical Exam Abdomen: Soft Heart: Normal S1, Normal S2 Extremities: No clubbing General: Oriented X3 HEENT: PERRLA MUSCULOSKELETAL: No deformity Neck: No JVD Psych/Mental Status: Mental status NL Skin: No breakdown Diagnosis Problem List Problems Medical Problems: (1) COPD exacerbation Status: Acute (2) Hypoxia Status: Acute (3) UTI (urinary tract infection) Status: Acute Assessment Assessment Problems Medical Problems: (1) COPD exacerbation Status: Acute (2) Hypoxia Status: Acute (3) UTI (urinary tract infection) Status: Acute Assessment/Plan Acute hypoxic respiratory failure secondary to COPD exacerbation Acute COPD exacerbation Acute cystitis Acute electrolyte derangement suggestive of dehydrationhypernatremia, hyperchloremia Super super morbid obesity History of diabetes mellitus type 2 History of COPD History of hypertension PLAN:taper steroids. pt/ot ?home tomorrow dvt prevention. Pulmonology consult Continue IV steroids Continue empiric IV antibiotics Pending urine cultures and await for S&S Lovenox for DVT prophylaxis Protonix while on steroids GI prophylaxis ADA diet CODE STATUS assumed full code Discussed with RN and SW Disposition inpatient management as above DPOA: Beena Rosas Plan Plan of Care Problems Medical Problems: (1) COPD exacerbation Status: Acute (2) Hypoxia Status: Acute (3) UTI (urinary tract infection) Status: Acute Comment Review of Relevant I have reviewed the following items dez (where applicable) has been applied. Labs Laboratory Tests Test 09/12/21 13:08 09/12/21 13:55 09/12/21 15:10 09/12/21 15:48 Influenza Type A Antigen Negative (NEGATIVE) Influenza Type B Antigen Negative (NEGATIVE) SARS-CoV-2 RNA (RENATA) Negative (Negative) SARS-CoV-2 Antigen (Rapid) Negative (NEGATIVE) White Blood Count 9.8 x10^3/uL (4.0-11.0) Red Blood Count 3.95 x10^6/uL (3.50-5.40) Hemoglobin 11.1 g/dL (12.0-15.5) Hematocrit 34.7 % (36.0-47.0) Mean Corpuscular Volume 88 fL (79-100) Mean Corpuscular Hemoglobin 28 pg (25-35) Mean Corpuscular Hemoglobin Concent 32 g/dL (31-37) Red Cell Distribution Width 15.1 % (11.5-14.5) Platelet Count 190 x10^3/uL (140-400) Neutrophils (%) (Auto) 87 % (31-73) Lymphocytes (%) (Auto) 4 % (24-48) Monocytes (%) (Auto) 8 % (0-9) Eosinophils (%) (Auto) 2 % (0-3) Basophils (%) (Auto) 0 % (0-3) Neutrophils # (Auto) 8.5 x10^3/uL (1.8-7.7) Lymphocytes # (Auto) 0.4 x10^3/uL (1.0-4.8) Monocytes # (Auto) 0.7 x10^3/uL (0.0-1.1) Eosinophils # (Auto) 0.2 x10^3/uL (0.0-0.7) Basophils # (Auto) 0.0 x10^3/uL (0.0-0.2) Segmented Neutrophils % 95 % (35-66) Lymphocytes % 1 % (24-48) Monocytes % 4 % (0-10) Toxic Granulation Slight Toxic Vacuolation Slight Platelet Estimate Adequate (ADEQUATE) Large Platelets Occ Ovalocytes Few Sodium Level 146 mmol/L (136-145) Potassium Level 4.0 mmol/L (3.5-5.1) Chloride Level 109 mmol/L (98-107) Carbon Dioxide Level 25 mmol/L (21-32) Anion Gap 12 (6-14) Blood Urea Nitrogen 19 mg/dL (7-20) Creatinine 0.7 mg/dL (0.6-1.0) Estimated GFR (Cockcroft-Gault) 100.1 BUN/Creatinine Ratio 27 (6-20) Glucose Level 105 mg/dL (70-99) Lactic Acid Level 1.9 mmol/L (0.4-2.0) Calcium Level 8.3 mg/dL (8.5-10.1) Magnesium Level 2.1 mg/dL (1.8-2.4) Total Bilirubin 0.3 mg/dL (0.2-1.0) Aspartate Amino Transf (AST/SGOT) 16 U/L (15-37) Alanine Aminotransferase (ALT/SGPT) 14 U/L (14-59) Alkaline Phosphatase 82 U/L (46-116) Lactate Dehydrogenase 248 U/L (81-234) Creatine Kinase 119 U/L (26-192) C-Reactive Protein, Quantitative 13.6 mg/L (0-3.3) Total Protein 7.0 g/dL (6.4-8.2) Albumin 3.2 g/dL (3.4-5.0) Albumin/Globulin Ratio 0.8 (1.0-1.7) D-Dimer (Natali) 0.37 ug/mlFEU (0.00-0.50) Urine Collection Type Unknown Urine Color Yellow Urine Clarity Cloudy Urine pH 7.0 (<5.0-8.0) Urine Specific [place] 1.015 (1.000-1.030) Urine Protein 30 mg/dL (NEG-TRACE) Urine Glucose (UA) Negative mg/dL (NEG) Urine Ketones (Stick) Negative mg/dL (NEG) Urine Blood Small (NEG) Urine Nitrite Negative (NEG) Urine Bilirubin Negative (NEG) Urine Urobilinogen Dipstick 1.0 mg/dL (0.2 mg/dL) Urine Leukocyte Esterase Large (NEG) Urine RBC 3-5 /HPF (0-2) Urine WBC >40 /HPF (0-4) Urine Squamous Epithelial Cells Occ /LPF Urine Amorphous Sediment Present /HPF Urine Bacteria Moderate /HPF (0-FEW) Urine Mucus Slight /LPF Urine Trichomonas Present Test 09/12/21 21:51 09/13/21 09:00 Glucose (Fingerstick) 163 mg/dL (70-99) 188 mg/dL (70-99) Medications Current Medications Acetaminophen (Tylenol) 650 mg PRN Q4HRS PRN PO TEMP OVER 100.4F OR MILD PAIN Last administered on 09/13/21at 03:48; Start 09/12/21 at 18:00 Acetaminophen (Tylenol) 1,000 mg 1X ONCE PO Last administered on 09/12/21at 13:05; Start 09/12/21 at 12:45; Stop 09/12/21 at 12:46; Status DC Albuterol/ Ipratropium (Combivent Respimat 20-100 Mcg) 1 puff RTQID INH Last administered on 09/13/21at 07:59; Start 09/13/21 at 08:00 Albuterol/ Ipratropium (Duoneb) 3 ml 1X ONCE NEB Last administered on 09/12/21at 13:08; Start 09/12/21 at 12:45; Stop 09/12/21 at 12:46; Status DC Albuterol/ Ipratropium (Duoneb) 3 ml RTQID NEB ; Start 09/12/21 at 20:00; Stop 09/13/21 at 05:17; Status DC Ceftriaxone Sodium (Rocephin) 1 gm 1X ONCE IVP Last administered on 09/12/21at 18:20; Start 09/12/21 at 17:00; Stop 09/12/21 at 17:01; Status DC Ceftriaxone Sodium (Rocephin) 1 gm Q24H IVP ; Start 09/13/21 at 18:00 Dexamethasone Sodium Phosphate (Decadron) 10 mg 1X ONCE IVP Last administered on 09/12/21at 13:04; Start 09/12/21 at 12:45; Stop 09/12/21 at 12:46; Status DC Dextrose (Dextrose 50%-Water Syringe) 12.5 gm PRN Q15MIN PRN IV SEE COMMENTS; Start 09/12/21 at 18:00; Stop 09/12/21 at 20:49; Status DC Dextrose (Dextrose 50%-Water Syringe) 12.5 gm PRN Q15MIN PRN IV SEE COMMENTS; Start 09/12/21 at 20:45 Diphenhydramine HCl (Benadryl) 25 mg PRN Q6HRS PRN IVP ITCHING; Start 09/12/21 at 18:00 Diphenhydramine HCl (Benadryl) 25 mg PRN Q6HRS PRN PO ITCHING; Start 09/12/21 at 18:00 Diphenhydramine HCl (Benadryl) 25 mg PRN QHS PRN PO INSOMNIA; Start 09/12/21 at 18:00 Docusate Sodium (Colace) 100 mg PRN DAILY PRN PO HARD STOOLS; Start 09/12/21 at 18:00 Enoxaparin Sodium (Lovenox 40mg Syringe) 40 mg Q24H SQ Last administered on 09/12/21at 21:15; Start 09/12/21 at 21:00 Insulin Human Lispro (HumaLOG) 0-7 UNITS TIDWMEALS SQ ; Start 09/12/21 at 21:00 Lorazepam (Ativan Inj) 0.25 mg PRN Q4HRS PRN IV ANXIETY / AGITATION; Start 09/12/21 at 18:00 Lorazepam (Ativan) 0.5 mg PRN Q6HRS PRN PO ANXIETY / AGITATION; Start 09/12/21 at 18:00 Methylprednisolone Sodium Succinate (SOLU-Medrol 40MG VIAL) 40 mg Q6HRS IV Last administered on 09/13/21at 05:39; Start 09/12/21 at 18:00 Ondansetron HCl (Zofran) 4 mg PRN Q6HRS PRN IVP NAUSEA/VOMITING; Start 09/12/21 at 18:00 Pantoprazole Sodium (Protonix) 40 mg DAILYAC PO Last administered on 09/13/21at 07:59; Start 09/13/21 at 07:30 Prochlorperazine Edisylate (Compazine) 10 mg PRN Q6HRS PRN IV NAUSEA/VOMITING; Start 09/12/21 at 18:00 Sennosides (Senna) 17.2 mg PRN BID PRN PO CONSTIPATION; Start 09/12/21 at 18:00 Sodium Chloride 1,000 ml @ 1,000 mls/hr 1X ONCE IV Last administered on 09/12/21at 13:06; Start 09/12/21 at 12:45; Stop 09/12/21 at 13:44; Status DC Zolpidem Tartrate (Ambien) 2.5 mg PRN QHS PRN PO INSOMNIA; Start 09/12/21 at 18:00; Stop 09/12/21 at 18:06; Status DC Zolpidem Tartrate (Ambien) 2.5 mg PRN QHS PRN PO INSOMNIA Last administered on 09/12/21at 22:08; Start 09/12/21 at 18:00 Vitals/I & O Vital Sign - Last 24 Hours 09/12/21 09/12/21 09/12/21 09/12/21 12:20 13:00 13:08 14:00 Temp 101.4 101.4 Pulse 113 110 Resp 32 28 B/P (MAP) 132/85 (101) 156/87 (110) 149/87 (107) Pulse Ox 94 98 95 O2 Delivery Nasal Cannula Nasal Cannula Nasal Cannula O2 Flow Rate 2.0 3.0 09/12/21 09/12/21 09/12/21 09/12/21 15:00 15:47 16:30 17:00 Pulse 108 110 97 96 Resp 30 24 21 B/P (MAP) 132/83 (99) 228/112 (150) 174/98 (123) 143/64 (90) Pulse Ox 99 97 97 96 O2 Delivery Nasal Cannula Nasal Cannula Nasal Cannula Nasal Cannula O2 Flow Rate 2.0 2.0 2.0 2.0 09/12/21 09/12/21 09/12/21 09/12/21 17:30 18:56 19:00 20:00 Temp 98.6 98.8 98.8 98.6 98.8 98.8 Pulse 90 88 82 Resp 24 20 20 B/P (MAP) 150/76 (100) 145/64 (91) 184/97 (126) Pulse Ox 99 99 99 O2 Delivery Nasal Cannula Nasal Cannula Nasal Cannula Nasal Cannula O2 Flow Rate 2.0 4.0 3.0 4.0 09/12/21 09/13/21 09/13/21 23:00 03:00 08:20 Temp 98.1 98.0 98.1 98.0 Pulse 92 88 Resp 20 20 B/P (MAP) 184/97 (126) 178/96 (123) Pulse Ox 98 100 O2 Delivery Nasal Cannula Nasal Cannula Nasal Cannula O2 Flow Rate 3.0 3.0 5.0 Intake and Output 09/12/21 09/12/21 09/13/21 15:00 23:00 07:00 Intake Total 200 ml Balance 200 ml Justifications for Admission Other Justification COPD exacerbation and UTI KATTY MICHAEL MD Sep 13, 2021 09:31
[2021-09-13] MEDS: INSULIN LISPRO 300 UNITS/3 ML VIAL. SQ SCH ×3 (09:50→16:26)
[2021-09-13] MEDS: HYDROcodone/APAP 5/325MG 1 TAB TABLET PO PRN ×2 (09:55→20:50)
[2021-09-13 11:00] VITALS: BP 172/96
--- NOTE | 2021-09-13 11:30 | NUR ---
SW following. Discussed with RN, pt from home alone, 5L (uses 2L at home), cardiac diet. PT/OT ordered. Flu and Rapid COVID-19 negative. Pulmonology following. Possible discharge home tomorrow per RN. SW will continue to follow.
[2021-09-13 15:00] VITALS: BP 172/90
[2021-09-13] MEDS: cefTRIAXone IV Push 1 GM VIAL. IVP SCH (17:33)
[2021-09-13 19:00] VITALS: BP 164/93
[2021-09-13] MEDS: ENOXAPARIN 40 MG/0.4 ML SYRINGE. SQ SCH (20:49)
[2021-09-13] MEDS: LACTOBACILLUS RHAMNOSUS GG 1 CAPSULE. PO SCH (20:50)
[2021-09-13 23:00] VITALS: BP 174/93
[2021-09-14] VITALS (7 sets, daily range): BP systolic 90–152; BP diastolic 45–87
--- NOTE | 2021-09-14 02:36 | CONS ---
DATE OF CONSULTATION: 09/13/2021 ATTENDING PHYSICIAN: Dr. Santacruz. REASON FOR CONSULTATION: The patient is seen in pulmonary consultation at the request of Dr. Santacruz for increasing shortness of air, hypoxemia. HISTORY OF PRESENT ILLNESS: The patient is a 71-year-old that has a history of chronic respiratory failure, fully vaccinated for COVID-19, presented with increasing shortness of breath. She arrived with EMS, was placed on 4 liters of oxygen. The patient does not normally wear oxygen at home. She had a fever of 101. She was admitted. She had imaging studies. Chest x-ray revealed no significant change from previous x-ray. There is some scarring, otherwise no infiltrates. PAST MEDICAL HISTORY: Otherwise remarkable for previous history of lung cancer. The patient had a PET scan on of last September revealing ____ scarring in the anterior right upper lobe. No evidence of residual or new disease. Otherwise, she has a history of COPD, type 2 diabetes, hypertension. PAST SURGICAL HISTORY: Status post cholecystectomy, hysterectomy, back surgery. ALLERGIES: CIPROFLOXACIN, CODEINE, AND IODINE. REVIEW OF SYSTEMS: As indicated above, otherwise a 10-point system was reviewed and negative. CURRENT MEDICATIONS: List was reviewed. SOCIAL HISTORY: She is currently not smoking. PHYSICAL EXAMINATION: VITAL SIGNS: Stable. O2 saturation was greater than 92%. LUNGS: Anteriorly were clear, posteriorly likewise clear. CARDIOVASCULAR: Regular rate and rhythm with S1, S2. No S3. ABDOMEN: Soft, nontender. EXTREMITIES: No clubbing, cyanosis or edema. NEUROLOGIC: The patient was awake, alert, following commands. A detailed neuro exam was not performed. LABORATORY DATA: Reviewed. Influenza and SARS-CoV-2 testing was negative. White count was 9.8. Hemoglobin and hematocrit were noted. Sodium was high. C-reactive protein was high. IMPRESSION: 1. Acute hypoxemic respiratory failure. 2. Acute exacerbation of chronic obstructive pulmonary disease. 3. Right upper lobe lung cancer, status post radiation. 4. Tobacco dependence, in remission. 5. Morbid obesity. 6. Hypertension. PLAN: 1. Continue current oxygen supplementation. 2. A 6-minute walk prior to discharge. 3. DVT prophylaxis. 4. Monitor blood sugars. 5. Nebulized treatments. 6. Steroids. I do appreciate the privilege in sharing in the patient's care. PAVAN/ABENA/MARISELA DR: PAVAN/roxanne TID: [id number]
[2021-09-14] MEDS ORDERED: CARVEDILOL 12.5 MG TABLET. PO ONE (04:00)
[2021-09-14] MEDS: INSULIN LISPRO 300 UNITS/3 ML VIAL. SQ SCH ×3 (08:00→16:53)
--- NOTE | 2021-09-14 08:04 | PDOC ---
PULMONARY PROGRESS NOTES DATE: 09/14/21 TIME: 08:04 Subjective Patient does not feel as good as yesterday, had A. fib this morning. Vitals Vital Signs Date Time Temp Pulse Resp B/P (MAP) Pulse Ox O2 Delivery O2 Flow Rate FiO2 09/14/21 04:02 117 130/64 09/14/21 03:00 98.1 20 96 Nasal Cannula 3.0 98.1 ROS: No Nausea, No Chest Pain, No Abdominal Pain, No Increase Cough Lungs: Clear Cardiovascular: S1, S2 Abdomen: Soft Extremities: No Edema Labs Laboratory Tests Test 09/12/21 13:08 09/12/21 13:55 09/12/21 15:10 09/12/21 15:48 Influenza Type A Antigen Negative (NEGATIVE) Influenza Type B Antigen Negative (NEGATIVE) SARS-CoV-2 RNA (RENATA) Negative (Negative) SARS-CoV-2 Antigen (Rapid) Negative (NEGATIVE) White Blood Count 9.8 x10^3/uL (4.0-11.0) Red Blood Count 3.95 x10^6/uL (3.50-5.40) Hemoglobin 11.1 g/dL (12.0-15.5) Hematocrit 34.7 % (36.0-47.0) Mean Corpuscular Volume 88 fL (79-100) Mean Corpuscular Hemoglobin 28 pg (25-35) Mean Corpuscular Hemoglobin Concent 32 g/dL (31-37) Red Cell Distribution Width 15.1 % (11.5-14.5) Platelet Count 190 x10^3/uL (140-400) Neutrophils (%) (Auto) 87 % (31-73) Lymphocytes (%) (Auto) 4 % (24-48) Monocytes (%) (Auto) 8 % (0-9) Eosinophils (%) (Auto) 2 % (0-3) Basophils (%) (Auto) 0 % (0-3) Neutrophils # (Auto) 8.5 x10^3/uL (1.8-7.7) Lymphocytes # (Auto) 0.4 x10^3/uL (1.0-4.8) Monocytes # (Auto) 0.7 x10^3/uL (0.0-1.1) Eosinophils # (Auto) 0.2 x10^3/uL (0.0-0.7) Basophils # (Auto) 0.0 x10^3/uL (0.0-0.2) Segmented Neutrophils % 95 % (35-66) Lymphocytes % 1 % (24-48) Monocytes % 4 % (0-10) Toxic Granulation Slight Toxic Vacuolation Slight Platelet Estimate Adequate (ADEQUATE) Large Platelets Occ Ovalocytes Few Sodium Level 146 mmol/L (136-145) Potassium Level 4.0 mmol/L (3.5-5.1) Chloride Level 109 mmol/L (98-107) Carbon Dioxide Level 25 mmol/L (21-32) Anion Gap 12 (6-14) Blood Urea Nitrogen 19 mg/dL (7-20) Creatinine 0.7 mg/dL (0.6-1.0) Estimated GFR (Cockcroft-Gault) 100.1 BUN/Creatinine Ratio 27 (6-20) Glucose Level 105 mg/dL (70-99) Lactic Acid Level 1.9 mmol/L (0.4-2.0) Calcium Level 8.3 mg/dL (8.5-10.1) Magnesium Level 2.1 mg/dL (1.8-2.4) Total Bilirubin 0.3 mg/dL (0.2-1.0) Aspartate Amino Transf (AST/SGOT) 16 U/L (15-37) Alanine Aminotransferase (ALT/SGPT) 14 U/L (14-59) Alkaline Phosphatase 82 U/L (46-116) Lactate Dehydrogenase 248 U/L (81-234) Creatine Kinase 119 U/L (26-192) C-Reactive Protein, Quantitative 13.6 mg/L (0-3.3) Total Protein 7.0 g/dL (6.4-8.2) Albumin 3.2 g/dL (3.4-5.0) Albumin/Globulin Ratio 0.8 (1.0-1.7) D-Dimer (Natali) 0.37 ug/mlFEU (0.00-0.50) Urine Collection Type Unknown Urine Color Yellow Urine Clarity Cloudy Urine pH 7.0 (<5.0-8.0) Urine Specific [place] 1.015 (1.000-1.030) Urine Protein 30 mg/dL (NEG-TRACE) Urine Glucose (UA) Negative mg/dL (NEG) Urine Ketones (Stick) Negative mg/dL (NEG) Urine Blood Small (NEG) Urine Nitrite Negative (NEG) Urine Bilirubin Negative (NEG) Urine Urobilinogen Dipstick 1.0 mg/dL (0.2 mg/dL) Urine Leukocyte Esterase Large (NEG) Urine RBC 3-5 /HPF (0-2) Urine WBC >40 /HPF (0-4) Urine Squamous Epithelial Cells Occ /LPF Urine Amorphous Sediment Present /HPF Urine Bacteria Moderate /HPF (0-FEW) Urine Mucus Slight /LPF Urine Trichomonas Present Test 09/12/21 21:51 09/13/21 09:00 09/13/21 11:16 09/13/21 16:23 Glucose (Fingerstick) 163 mg/dL (70-99) 188 mg/dL (70-99) 174 mg/dL (70-99) 110 mg/dL (70-99) Test 09/13/21 21:05 Glucose (Fingerstick) 139 mg/dL (70-99) Laboratory Tests Test 09/13/21 09:00 09/13/21 11:16 09/13/21 16:23 09/13/21 21:05 Glucose (Fingerstick) 188 mg/dL (70-99) 174 mg/dL (70-99) 110 mg/dL (70-99) 139 mg/dL (70-99) Medications Active Scripts Medications Dose Route/Sig Max Daily Dose Days Date Category Dose Instructions Proair Respiclick (Albuterol Sulfate) 90 Mcg Aer.pow.ba Unknown Dose PRN PRN 09/13/21 Reported Melatonin 10 Mg Tab.mphase 10 Mg PO PRN PRN 09/12/21 Reported Prednisone 20 Mg Tablet 1 Tab PO UD 12 12/19/20 Rx Take 2 tabs days 1,2,3 1.5 tabs days 3,4,5 1 tab days 6,7,8 0.5 tab days 9,10,11 Trelegy Ellipta 100-62.5-25 (Fluticasone/Umeclidin/Vilanter) 1 Each Blst.w.dev 1 Each IH DAILY 08/12/19 Reported Gabapentin (Gabapentin) 400 Mg Capsule 400 Mg PO BID 08/12/19 Reported Losartan Potassium 100 Mg Tablet 100 Mg PO DAILY 08/12/19 Reported Coreg (Carvedilol) 12.5 Mg Tablet 12.5 Mg PO DAILY 02/17/19 Reported Amlodipine Besylate 10 Mg Tablet 10 Mg PO DAILY 06/19/18 Reported Impression . IMPRESSION: 1. Acute hypoxemic respiratory failure. 2. Acute exacerbation of chronic obstructive pulmonary disease. 3. Right upper lobe lung cancer, status post radiation. 4. Tobacco dependence, in remission. 5. Morbid obesity. 6. Hypertension. 7. A. fib with rapid ventricular response, new Plan . Follow cardiology input Continue oxygen supplementation 6-minute walk in the a.m. Taper prednisone upon discharge Follow-up with me in October PLAN: 1. Continue current oxygen supplementation. 2. A 6-minute walk prior to discharge. 3. DVT prophylaxis. 4. Monitor blood sugars. 5. Nebulized treatments. 6. Steroids. I do appreciate the privilege in sharing in the patient's care. BEATRIS MORRISON MD Sep 14, 2021 08:04
[2021-09-14] MEDS: IPRATROPIUM/ALBUTEROL 20/100mcg/INH INHALER. INH SCH (08:09)
[2021-09-14] MEDS: PANTOPRAZOLE 40 MG TABLET.DR. PO SCH (08:10)
[2021-09-14] MEDS: LACTOBACILLUS RHAMNOSUS GG 1 CAPSULE. PO SCH ×2 (08:10→21:18)
[2021-09-14] MEDS: GABAPENTIN 400 MG CAPSULE. PO SCH ×2 (08:10→21:18)
[2021-09-14] MEDS: methylPREDNISolone SOD SUCC PF 40 MG/ML VIAL. IV SCH ×2 (08:11→21:19)
--- NOTE | 2021-09-14 09:05 | PDOC ---
PROGRESS NOTES Date of Service: DATE: 09/14/21 TIME: 09:03 Subjective Subjective feels good,want to go home Objective Objective Vital Signs Date Time Temp Pulse Resp B/P (MAP) Pulse Ox O2 Delivery O2 Flow Rate FiO2 09/14/21 08:21 Nasal Cannula 3.0 09/14/21 04:02 117 130/64 09/14/21 03:00 98.1 20 96 98.1 Intake and Output 09/14/21 07:00 Intake Total 600 ml Balance 600 ml Intake Oral 600 ml # Voids 4 Physical Exam Abdomen: Soft Heart: Normal S1, Normal S2 Extremities: No clubbing General: Oriented X3 HEENT: PERRLA MUSCULOSKELETAL: No deformity Neck: No JVD Psych/Mental Status: Mental status NL Skin: No breakdown Diagnosis Problem List Problems Medical Problems: (1) COPD exacerbation Status: Acute (2) Hypoxia Status: Acute (3) UTI (urinary tract infection) Status: Acute Assessment Assessment Problems Medical Problems: (1) COPD exacerbation Status: Acute (2) Hypoxia Status: Acute (3) UTI (urinary tract infection) Status: Acute Assessment/Plan Acute hypoxic respiratory failure secondary to COPD exacerbation Acute COPD exacerbation Acute cystitis Acute electrolyte derangement suggestive of dehydrationhypernatremia, hyperchloremia Super super morbid obesity History of diabetes mellitus type 2 History of COPD History of hypertension PLAN:d/c home today po steroids.po antibiotics pt/ot c/s neg dvt prevention. pt uses oxygen at home 2 L half-way. Plan Plan of Care Problems Medical Problems: (1) COPD exacerbation Status: Acute (2) Hypoxia Status: Acute (3) UTI (urinary tract infection) Status: Acute Comment Review of Relevant I have reviewed the following items dez (where applicable) has been applied. Labs Laboratory Tests Test 09/13/21 11:16 09/13/21 16:23 09/13/21 21:05 09/14/21 08:02 Glucose (Fingerstick) 174 mg/dL (70-99) 110 mg/dL (70-99) 139 mg/dL (70-99) 134 mg/dL (70-99) Microbiology 09/12/21 Urine Culture - Final, Complete 09/12/21 Blood Culture - Preliminary, Resulted NO GROWTH AFTER 1 DAY Medications Current Medications Acetaminophen/ Hydrocodone Bitart (Lortab 5/325) 1 tab PRN Q4HRS PRN PO PAIN Last administered on 09/13/21at 20:50; Start 09/13/21 at 09:30 Albuterol/ Ipratropium (Duoneb) 3 ml RTQID NEB ; Start 09/14/21 at 12:00 Amlodipine Besylate (Norvasc) 10 mg DAILY PO ; Start 09/14/21 at 09:00 Carvedilol (Coreg) 12.5 mg 1X ONCE PO Last administered on 09/14/21at 04:02; Start 09/14/21 at 04:00; Stop 09/14/21 at 04:01; Status DC Carvedilol (Coreg) 12.5 mg BIDWMEALS PO ; Start 09/14/21 at 17:00 Ceftriaxone Sodium (Rocephin) 1 gm Q24H IVP Last administered on 09/13/21at 17:33; Start 09/13/21 at 18:00 Gabapentin (Neurontin) 400 mg BID PO Last administered on 09/14/21at 08:10; Start 09/14/21 at 09:00 Lactobacillus Rhamnosus (Culturelle) 1 cap BID PO Last administered on 09/14/21at 08:10; Start 09/13/21 at 21:00 Losartan Potassium (Cozaar) 100 mg DAILY PO ; Start 09/14/21 at 09:00 Methylprednisolone Sodium Succinate (SOLU-Medrol 40MG VIAL) 40 mg Q12HR IV Last administered on 09/14/21at 08:11; Start 09/13/21 at 21:00 Vitals/I & O Vital Sign - Last 24 Hours 09/13/21 09/13/21 09/13/21 09/13/21 11:00 15:00 19:00 20:00 Temp 98.5 98.6 98.7 98.5 98.6 98.7 Pulse 92 95 98 Resp 18 18 20 B/P (MAP) 172/96 (121) 172/90 (117) 164/93 (116) Pulse Ox 100 100 100 O2 Delivery Nasal Cannula Nasal Cannula Nasal Cannula O2 Flow Rate 3.0 3.0 3.0 5.0 09/13/21 09/13/21 09/13/21 09/14/21 20:50 23:00 23:01 03:00 Temp 99.8 98.1 99.8 98.1 Pulse 96 117 Resp 18 20 16 20 B/P (MAP) 174/93 (120) 130/64 (86) Pulse Ox 96 96 O2 Delivery Room Air Nasal Cannula O2 Flow Rate 3.0 3.0 09/14/21 09/14/21 04:02 08:21 Pulse 117 B/P (MAP) 130/64 O2 Delivery Nasal Cannula O2 Flow Rate 3.0 Intake and Output 09/13/21 09/13/21 09/14/21 15:00 23:00 07:00 Intake Total 200 ml 400 ml Balance 200 ml 400 ml Justifications for Admission Other Justification COPD exacerbation and UTI KATTY MICHAEL MD Sep 14, 2021 09:04
[2021-09-14] MEDS ORDERED: PRED20TA PO (09:09)
[2021-09-14] MEDS ORDERED: CEFD300C PO (09:09)
[2021-09-14] MEDS: LOSARTAN POTASSIUM 50 MG TABLET. PO SCH (09:29)
--- NOTE | 2021-09-14 10:35 | NUR ---
At approx 1015, this RN called and notified Dr. Santacruz of change in pt's rhythm on tele monitor. Pt appears to be in atrial fibrillation. Orders received for an EKG and cardiology consult.
[2021-09-14] MEDS: IPRATRPIUM/ALBUTEROL 0.5/2.5MG 3 ML NEBU. NEB SCH ×3 (12:00→20:00)
--- NOTE | 2021-09-14 12:50 | NUR ---
SW following. Discussed with RN, discharge order for home with self care. RN advised no SW needs at this time.
[2021-09-14] MEDS ORDERED: METOPROLOL IV PUSH 5 MG/5 ML VIAL. IVP ONE (13:15)
--- NOTE | 2021-09-14 13:15 | PDOC2 ---
CARDIAC CONSULT DATE OF CONSULT Date of Consult DATE: 09/14/21 TIME: 12:43 REASON FOR CONSULT Reason for Consult: AFIB REFERRING PHYSICIAN Referring Physician: Dr. Santacruz SOURCE Source: Chart review, Patient HISTORY OF PRESENT ILLNESS HISTORY OF PRESENT ILLNESS This is a 71 yo female who presented secondary to shortness of breath. Was treated for AE COPD. Overnight, became tachycardiac. Was noted in AFIB with RVR, which prompted this consult. Is presently off tele. Patient reports she just cleaned up in the bathroom and is feeling more short of breath. Denies any chest pain, palpitations, dizziness, diaphoresis, or nausea/vomiting. Thinks she may have a history of irregular heart rhythm many years ago. PAST MEDICAL HISTORY Past Medical History peripheral subretinal hemorrhage Cardiovascular: HTN Pulmonary: COPD, Other (lung adenocarcinoma ) Musculoskeletal: Osteoarthritis Endocrine: Diabetes PAST SURGICAL HISTORY Past Surgical History: Cholecystectomy, Hysterectomy FAMILY HISTORY Family History: Heart Disease SOCIAL HISTORY Smoke: Quit (smokes occasionally ) ALCOHOL: none Drugs: None Lives: with Family CURRENT MEDICATIONS CURRENT MEDICATIONS Current Medications Medications (Trade) Dose Ordered Sig/Lizeth Route PRN Reason Start Time Stop Time Status Last Admin Dose Admin Ceftriaxone Sodium (Rocephin) 1 gm Q24H IVP 09/13/21 18:00 09/13/21 17:33 Methylprednisolone Sodium Succinate (SOLU-Medrol 40MG VIAL) 40 mg Q12HR IV 09/13/21 21:00 09/14/21 08:11 Lactobacillus Rhamnosus (Culturelle) 1 cap BID PO 09/13/21 21:00 09/14/21 08:10 Amlodipine Besylate (Norvasc) 10 mg DAILY PO 09/14/21 09:00 09/14/21 09:28 Gabapentin (Neurontin) 400 mg BID PO 09/14/21 09:00 09/14/21 08:10 Losartan Potassium (Cozaar) 100 mg DAILY PO 09/14/21 09:00 09/14/21 09:29 Carvedilol (Coreg) 12.5 mg 1X ONCE PO 09/14/21 04:00 09/14/21 04:01 DC 09/14/21 04:02 ALLERGIES ALLERGIES: Coded Allergies: ciprofloxacin (Verified Allergy, Intermediate, 06/18/18) codeine (Verified Allergy, Intermediate, LORTAB OK, 06/19/18) iodine (Verified Allergy, Intermediate, Rash, 09/12/21) ROS Review of System 14 point ROS conducted with pertinent positives noted above in HPI PHYSICAL EXAM General: Alert, Oriented X3, Cooperative, No acute distress HEENT: Atraumatic Lungs: Other (diminished bases ) Heart: Other (AFIB ) Abdomen: Soft Extremities: No edema, Normal pulses Skin: No significant lesion Neuro: Normal speech, Sensation intact Psych/Mental Status: Mental status NL, Mood NL MUSCULOSKELETAL: Osteoarthritic changes both hands VITALS/I&O VITALS/I&O: Vital Signs Date Time Temp Pulse Resp B/P (MAP) Pulse Ox O2 Delivery O2 Flow Rate FiO2 09/14/21 09:29 127 120/76 09/14/21 08:21 Nasal Cannula 3.0 09/14/21 07:00 98.6 20 98 98.6 I & O 09/13/21 09/13/21 09/14/21 15:00 23:00 07:00 Intake Total 200 ml 400 ml Balance 200 ml 400 ml LABS Lab: Laboratory Tests Test 09/13/21 16:23 09/13/21 21:05 09/14/21 08:02 09/14/21 11:58 Glucose (Fingerstick) 110 mg/dL (70-99) H 139 mg/dL (70-99) H 134 mg/dL (70-99) H 167 mg/dL (70-99) H ASSESSMENT/PLAN ASSESSMENT/PLAN 1. Acute on chronic respiratory failure with AE COPD 2. New onset AFIB with RVR 3. Hypertension 4. Lung CA s/p radiation 5. H/o tobaccoism; continues to smoke occasionally Recommendations Echo to assess LV systolic function TSH, lipids Convert Coreg to metoprolol for rate control. Will give 5mg IVP x1 now [id number] 3 correlating with a 3.2% risk of stroke per year. Would recommend Eliquis for stroke prophylaxis. Outpatient event monitor as arranged to guide therapy Follow up in our office with Dr. Solo has been arranged Consider outpatient ischemic evaluation Supportive JAKI HAMM APRN Sep 14, 2021 13:14
--- NOTE | 2021-09-14 13:20 | EKG ---
[facility] [address] [place] [address] Test Date: 2021-09-14 Test Time: 13:12:20 Pat Name: AVTAR MC Department: Room: 532 1 Gender: F Visitor Services Information Assistant: SONALI : 1950 Requested By: KATTY MICHAEL Order Number: [id number] Reading MD: Kelby Decker Measurements Intervals [place] Rate: 119 P: MS: QRS: -16 QRSD: 114 T: 34 QT: 336 QTc: 480 Interpretive Statements ATRIAL FIBRILLATION WITH RVR LEFTWARD AXIS LOW LIMB LEAD VOLTAGE INCOMPLETE RIGHT BUNDLE BRANCH BLOCK T ABNORMALITY IN ANTEROSEPTAL LEADS ABNORMAL ECG Electronically Signed On 09-18-2021 12:32:48 FIELD SERVICE TECHNICIAN by Kelby Decker
[2021-09-14] MEDS ORDERED: ANTI-COAG MONITOR BY PHARMACY. MC PRN (13:30)
[2021-09-14] MEDS: cefTRIAXone IV Push 1 GM VIAL. IVP SCH (16:50)
[2021-09-14] MEDS ORDERED: CARVEDILOL 12.5 MG TABLET. PO SCH (17:00)
--- NOTE | 2021-09-14 18:03 | NUR ---
1200 medication administration documented via downtime form by this RN.
[2021-09-14] MEDS: APIXABAN 5 MG TABLET. PO SCH (21:18)
[2021-09-14] MEDS: METOPROLOL TART IMMED RELEASE 25 MG TABLET. PO SCH (21:19)
[2021-09-14] MEDS ORDERED: APIX5TAB PO (21:25)
[2021-09-14] MEDS ORDERED: METO25TA4 PO (21:25)
[2021-09-15 03:16] VITALS: BP 123/87
[2021-09-15 07:00] VITALS: BP 155/124
[2021-09-15 07:40] LABS: CHOLESTEROL/HDL RATIO 2.9
[2021-09-15] MEDS: INSULIN LISPRO 300 UNITS/3 ML VIAL. SQ SCH ×3 (08:00→17:56)
[2021-09-15] MEDS: IPRATRPIUM/ALBUTEROL 0.5/2.5MG 3 ML NEBU. NEB SCH ×4 (08:00→18:30)
[2021-09-15] MEDS: CEFDINIR 300 MG CAPSULE PO SCH ×2 (08:39→20:12)
[2021-09-15] MEDS: PANTOPRAZOLE 40 MG TABLET.DR. PO SCH (08:40)
[2021-09-15] MEDS: GABAPENTIN 400 MG CAPSULE. PO SCH ×2 (08:40→20:13)
[2021-09-15] MEDS: LACTOBACILLUS RHAMNOSUS GG 1 CAPSULE. PO SCH ×2 (08:40→20:12)
[2021-09-15] MEDS: APIXABAN 5 MG TABLET. PO SCH ×2 (08:40→20:13)
--- NOTE | 2021-09-15 08:41 | PDOC ---
PULMONARY PROGRESS NOTES DATE: 09/15/21 TIME: 08:40 Subjective Patient does not feel as good as yesterday, had A. fib this morning. Vitals Vital Signs Date Time Temp Pulse Resp B/P (MAP) Pulse Ox O2 Delivery O2 Flow Rate FiO2 09/15/21 03:16 98.3 104 18 123/87 (99) 96 Nasal Cannula 3.0 98.3 ROS: No Nausea, No Chest Pain, No Abdominal Pain, No Increase Cough Lungs: Clear Cardiovascular: S1, S2 Abdomen: Soft Extremities: No Edema Labs Laboratory Tests Test 09/13/21 09:00 09/13/21 11:16 09/13/21 16:23 09/13/21 21:05 Glucose (Fingerstick) 188 mg/dL (70-99) 174 mg/dL (70-99) 110 mg/dL (70-99) 139 mg/dL (70-99) Test 09/14/21 08:02 09/14/21 11:58 09/14/21 20:49 09/15/21 06:00 Glucose (Fingerstick) 134 mg/dL (70-99) 167 mg/dL (70-99) 123 mg/dL (70-99) Triglycerides Level 73 mg/dL (0-150) Cholesterol Level 149 mg/dL (0-200) LDL Cholesterol, Calculated 83 mg/dL (0-100) VLDL Cholesterol, Calculated 15 mg/dL (0-40) Non-HDL Cholesterol Calculated 98 mg/dL (0-129) HDL Cholesterol 51 mg/dL (40-60) Cholesterol/HDL Ratio 2.9 Thyroid Stimulating Hormone (TSH) 0.134 uIU/mL (0.358-3.74) Laboratory Tests Test 09/14/21 11:58 09/14/21 20:49 09/15/21 06:00 Glucose (Fingerstick) 167 mg/dL (70-99) 123 mg/dL (70-99) Triglycerides Level 73 mg/dL (0-150) Cholesterol Level 149 mg/dL (0-200) LDL Cholesterol, Calculated 83 mg/dL (0-100) VLDL Cholesterol, Calculated 15 mg/dL (0-40) Non-HDL Cholesterol Calculated 98 mg/dL (0-129) HDL Cholesterol 51 mg/dL (40-60) Cholesterol/HDL Ratio 2.9 Thyroid Stimulating Hormone (TSH) 0.134 uIU/mL (0.358-3.74) Medications Active Scripts Medications Dose Route/Sig Max Daily Dose Days Date Category Dose Instructions Proair Respiclick (Albuterol Sulfate) 90 Mcg Aer.pow.ba Unknown Dose PRN PRN 09/13/21 Reported Melatonin 10 Mg Tab.mphase 10 Mg PO PRN PRN 09/12/21 Reported Prednisone 20 Mg Tablet 1 Tab PO UD 12 12/19/20 Rx Take 2 tabs days 1,2,3 1.5 tabs days 3,4,5 1 tab days 6,7,8 0.5 tab days 9,10,11 Trelegy Ellipta 100-62.5-25 (Fluticasone/Umeclidin/Vilanter) 1 Each Blst.w.dev 1 Each IH DAILY 08/12/19 Reported Gabapentin (Gabapentin) 400 Mg Capsule 400 Mg PO BID 08/12/19 Reported Losartan Potassium 100 Mg Tablet 100 Mg PO DAILY 08/12/19 Reported Coreg (Carvedilol) 12.5 Mg Tablet 12.5 Mg PO DAILY 02/17/19 Reported Amlodipine Besylate 10 Mg Tablet 10 Mg PO DAILY 06/19/18 Reported Impression . IMPRESSION: 1. Acute hypoxemic respiratory failure. 2. Acute exacerbation of chronic obstructive pulmonary disease. 3. Right upper lobe lung cancer, status post radiation. 4. Tobacco dependence, in remission. 5. Morbid obesity. 6. Hypertension. 7. A. fib with rapid ventricular response, new Plan . Follow cardiology input Continue oxygen supplementation 6-minute walk in the a.m. Taper prednisone upon discharge Follow-up with me in October PLAN: 1. Continue current oxygen supplementation. 2. A 6-minute walk prior to discharge. 3. DVT prophylaxis. 4. Monitor blood sugars. 5. Nebulized treatments. 6. Steroids. I do appreciate the privilege in sharing in the patient's care. BEATRIS MORRISON MD Sep 15, 2021 08:40
[2021-09-15 08:44] LABS: CALCIUM 8.4 mg/dL (8.5-10.1); CREATININE 0.6 mg/dL (0.6-1.0); GFR 119.6; MAGNESIUM 2.4 mg/dL (1.8-2.4); POTASSIUM 4.5 mmol/L (3.5-5.1)
[2021-09-15] MEDS: METOPROLOL TART IMMED RELEASE 25 MG TABLET. PO SCH (08:49)
[2021-09-15] MEDS: LOSARTAN POTASSIUM 50 MG TABLET. PO SCH (08:52)
[2021-09-15] MEDS ORDERED: predniSONE 10 MG TABLET PO ONE (09:00)
[2021-09-15] MEDS ORDERED: METOPROLOL IV PUSH 5 MG/5 ML VIAL. IVP ONE (09:15)
--- NOTE | 2021-09-15 09:20 | PDOC ---
PROGRESS NOTES Date of Service: DATE: 09/15/21 TIME: 09:17 Subjective Subjective tachycardia hr 120 Objective Objective Vital Signs Date Time Temp Pulse Resp B/P (MAP) Pulse Ox O2 Delivery O2 Flow Rate FiO2 09/15/21 08:52 98 155/24 09/15/21 03:16 98.3 18 96 Nasal Cannula 3.0 98.3 Intake and Output 09/15/21 07:00 Intake Total 860 ml Output Total 1 ml Balance 859 ml Intake Oral 860 ml Output Stool Total 1 ml # Voids 3 Physical Exam Abdomen: Soft Heart: Other (AFIB ) Extremities: No edema, Normal pulses General: Alert, Oriented X3, Cooperative, No acute distress HEENT: Atraumatic Lungs: Other (diminished bases ) MUSCULOSKELETAL: Osteoarthritic changes both hands Neck: No JVD Neuro: Normal speech, Sensation intact Psych/Mental Status: Mental status NL, Mood NL Skin: No significant lesion Diagnosis Problem List Problems Medical Problems: (1) COPD exacerbation Status: Acute (2) Hypoxia Status: Acute (3) UTI (urinary tract infection) Status: Acute Assessment Assessment Problems Medical Problems: (1) COPD exacerbation Status: Acute (2) Hypoxia Status: Acute (3) UTI (urinary tract infection) Status: Acute Assessment/Plan: Afib with RVR Acute hypoxic respiratory failure secondary to COPD exacerbation Acute COPD exacerbation Acute cystitis Acute electrolyte derangement suggestive of dehydrationhypernatremia, hyp erchloremia Super super morbid obesity History of diabetes mellitus type 2 History of COPD History of hypertension PLAN:cardiology consult changed to metoprolol. inc dose metoprolol started on eliquis ECHO today ?home tomorrow. discharge cancelled po steroids.po antibiotics pt/ot c/s neg dvt prevention. 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 Plan Plan of Care Problems Medical Problems: (1) COPD exacerbation Status: Acute (2) Hypoxia Status: Acute (3) UTI (urinary tract infection) Status: Acute Comment Review of Relevant I have reviewed the following items dez (where applicable) has been applied. Labs Laboratory Tests Test 09/14/21 11:58 09/14/21 20:49 09/15/21 06:00 09/15/21 08:40 Glucose (Fingerstick) 167 mg/dL (70-99) 123 mg/dL (70-99) 133 mg/dL (70-99) Sodium Level 150 mmol/L (136-145) Potassium Level 4.5 mmol/L (3.5-5.1) Chloride Level 109 mmol/L (98-107) Carbon Dioxide Level 33 mmol/L (21-32) Anion Gap 8 (6-14) Blood Urea Nitrogen 24 mg/dL (7-20) Creatinine 0.6 mg/dL (0.6-1.0) Estimated GFR (Cockcroft-Gault) 119.6 Glucose Level 151 mg/dL (70-99) Calcium Level 8.4 mg/dL (8.5-10.1) Magnesium Level 2.4 mg/dL (1.8-2.4) Triglycerides Level 73 mg/dL (0-150) Cholesterol Level 149 mg/dL (0-200) LDL Cholesterol, Calculated 83 mg/dL (0-100) VLDL Cholesterol, Calculated 15 mg/dL (0-40) Non-HDL Cholesterol Calculated 98 mg/dL (0-129) HDL Cholesterol 51 mg/dL (40-60) Cholesterol/HDL Ratio 2.9 Thyroid Stimulating Hormone (TSH) 0.134 uIU/mL (0.358-3.74) Microbiology 09/12/21 Urine Culture - Final, Complete 09/12/21 Blood Culture - Preliminary, Resulted NO GROWTH AFTER 2 DAYS Medications Current Medications Albuterol/ Ipratropium (Duoneb) 3 ml RTQID NEB ; Start 09/14/21 at 12:00 Apixaban (Eliquis) 5 mg BID PO Last administered on 09/15/21at 08:40; Start 09/14/21 at 21:00 Carvedilol (Coreg) 12.5 mg BIDWMEALS PO ; Start 09/14/21 at 17:00; Stop 09/14/21 at 13:10; Status DC Cefdinir (Omnicef) 300 mg BID PO Last administered on 09/15/21at 08:39; Start 09/15/21 at 09:00 Info (Anti-Coagulation Monitoring By Pharmacy) 1 each PRN DAILY PRN MC PER PROTOCOL; Start 09/14/21 at 13:30 Metoprolol Tartrate (Lopressor Vial) 5 mg 1X ONCE IVP Last administered on 09/14/21at 13:53; Start 09/14/21 at 13:15; Stop 09/14/21 at 13:16; Status DC Metoprolol Tartrate (Lopressor) 25 mg BID PO Last administered on 09/15/21at 08:49; Start 09/14/21 at 21:00 Prednisone (Prednisone) 50 mg 1X ONCE PO Last administered on 09/15/21at 08:48; Start 09/15/21 at 09:00; Stop 09/15/21 at 09:01; Status DC Vitals/I & O Vital Sign - Last 24 Hours 09/14/21 09/14/21 09/14/21 09/14/21 09:27 09:28 09:29 11:00 Temp 98.6 98.6 Pulse 127 127 127 100 Resp 20 B/P (MAP) 120/76 (91) 120/76 120/76 122/70 (87) Pulse Ox 100 O2 Delivery Nasal Cannula O2 Flow Rate 3.0 09/14/21 09/14/21 09/14/21 09/14/21 13:53 15:00 20:00 20:17 Temp 98.4 99.0 98.4 99.0 Pulse 111 104 114 Resp 20 20 B/P (MAP) 131/59 152/87 (108) 135/84 (101) Pulse Ox 99 95 O2 Delivery Nasal Cannula Nasal Cannula Nasal Cannula O2 Flow Rate 3.0 3.0 3.0 09/14/21 09/14/21 09/15/21 09/15/21 21:19 23:14 03:16 08:49 Temp 99.1 98.3 99.1 98.3 Pulse 114 94 104 124 Resp 20 18 B/P (MAP) 135/84 150/87 (108) 123/87 (99) 155/124 Pulse Ox 99 96 O2 Delivery Nasal Cannula Nasal Cannula O2 Flow Rate 3.0 3.0 09/15/21 09/15/21 08:50 08:52 Pulse 98 98 B/P (MAP) 155/124 155/24 Intake and Output 09/14/21 09/14/21 09/15/21 15:00 23:00 07:00 Intake Total 500 ml 240 ml 120 ml Output Total 1 ml Balance 499 ml 240 ml 120 ml Justifications for Admission Other Justification COPD exacerbation and UTI KATTY MICHAEL MD Sep 15, 2021 09:20
[2021-09-15] MEDS ORDERED: METO50TA6 PO (09:22)
--- NOTE | 2021-09-15 10:03 | PDOC ---
AILEEN BARLOW [facility]BILE DISC JOCKEY 09/15/21 1003: CARDIO Progress Notes Date and Time Date of Service 09/15/2021 Time of Evaluation 0940 Subjective Subjective: No Chest Pain, No shortness of breath, No Palpitations Vitals Vitals Vital Signs Date Time Temp Pulse Resp B/P (MAP) Pulse Ox O2 Delivery O2 Flow Rate FiO2 09/15/21 08:52 98 155/24 09/15/21 03:16 98.3 18 96 Nasal Cannula 3.0 98.3 Weight Weight [ ] Input and Output Intake and Output Intake and Output 09/15/21 07:00 Intake Total 860 ml Output Total 1 ml Balance 859 ml Intake Oral 860 ml Output Stool Total 1 ml # Voids 3 Laboratory Labs Laboratory Tests Test 09/14/21 11:58 09/14/21 20:49 09/15/21 06:00 09/15/21 08:40 Glucose (Fingerstick) 167 mg/dL (70-99) 123 mg/dL (70-99) 133 mg/dL (70-99) Sodium Level 150 mmol/L (136-145) Potassium Level 4.5 mmol/L (3.5-5.1) Chloride Level 109 mmol/L (98-107) Carbon Dioxide Level 33 mmol/L (21-32) Anion Gap 8 (6-14) Blood Urea Nitrogen 24 mg/dL (7-20) Creatinine 0.6 mg/dL (0.6-1.0) Estimated GFR (Cockcroft-Gault) 119.6 Glucose Level 151 mg/dL (70-99) Calcium Level 8.4 mg/dL (8.5-10.1) Magnesium Level 2.4 mg/dL (1.8-2.4) Triglycerides Level 73 mg/dL (0-150) Cholesterol Level 149 mg/dL (0-200) LDL Cholesterol, Calculated 83 mg/dL (0-100) VLDL Cholesterol, Calculated 15 mg/dL (0-40) Non-HDL Cholesterol Calculated 98 mg/dL (0-129) HDL Cholesterol 51 mg/dL (40-60) Cholesterol/HDL Ratio 2.9 Thyroid Stimulating Hormone (TSH) 0.134 uIU/mL (0.358-3.74) Microbiology Micro Microbiology 09/12/21 Urine Culture - Final, Complete 09/12/21 Blood Culture - Preliminary, Resulted NO GROWTH AFTER 2 DAYS Physical Exam HEENT: Neck Supple W Full Motion Chest: Symmetric LUNGS: Other (diminished) Heart: irregularly irregular (afib) Abdomen: Soft N/T Extremities: No Edema, No Calf Tenderness Neurology: alert, oriented, follow commands Assessment Assessment 1. Acute on chronic respiratory failure with AE COPD 2. New onset AFIB with RVR: rate improved 3. Hypertension 4. Lung CA s/p radiation 5. H/o tobaccoism; continues to smoke occasionally 6. Hypernatremia: per PCP Recommendations TTE today. TSH subclinical level will check T3/T4 Continue metoprolol. Will consider titrating up per HR trend and if BP does not allow then will consider for low digoxin [id number] 3 correlating with a 3.2% risk of stroke per year. Would recommend Eliquis for stroke prophylaxis. Outpatient event monitor as arranged to guide therapy Follow up in our office with Dr. Chio has been arranged Consider outpatient ischemic evaluation Supportive Justicifation of Admission Dx: Justifications for Admission: Justification of Admission Dx: Yes GOVIND CHOI MD 09/15/21 1426: CARDIO Progress Notes Assessment Assessment Patient seen and examined I agree with our nurse practitioners assessment and plan. Acute on chronic respiratory failure with AE COPD. Mildly improved. Echo pending. New onset AFIB with RVR: rate improved. Recommend Eliquis for stroke prevention. Continue beta-blockers and possibly we will need to add digoxin for better rate control. Outpatient follow-up. Hypertension. Continue present treatment. Lung CA s/p radiation H/o tobaccoism; continues to smoke occasionally Hypernatremia: per PCP AILEEN BARLOW APRN Sep 15, 2021 10:03 GOVIND CHOI MD Sep 15, 2021 14:26
[2021-09-15 10:29] LABS: FREE T4 0.88 ng/dL (0.76-1.46)
--- NOTE | 2021-09-15 10:29 | NUR ---
SW following. Discussed with RN, pt from home, 3L (uses oxygen at home), cardiac diet. Discharge cancelled yesterday, possible discharge home tomorrow. SW will continue to follow.
[2021-09-15 11:00] VITALS: BP 138/81
[2021-09-15 15:00] VITALS: BP 126/92
[2021-09-15 19:00] VITALS: BP 113/71
[2021-09-15] MEDS: METOPROLOL TART IMMED RELEASE 50 MG TABLET. PO SCH (20:13)
[2021-09-15] MEDS: HYDROcodone/APAP 5/325MG 1 TAB TABLET PO PRN (20:14)
[2021-09-15 23:00] VITALS: BP 138/88
[2021-09-16 03:00] VITALS: BP 123/87
[2021-09-16] MEDS: PANTOPRAZOLE 40 MG TABLET.DR. PO SCH (05:25)
[2021-09-16] MEDS: IPRATRPIUM/ALBUTEROL 0.5/2.5MG 3 ML NEBU. NEB SCH ×4 (06:50→20:39)
[2021-09-16 07:00] VITALS: BP 123/79
--- NOTE | 2021-09-16 07:35 | PDOC ---
PULMONARY PROGRESS NOTES DATE: 09/16/21 TIME: 07:35 Subjective Patient not more short of air, continues to have A. fib. Vitals Vital Signs Date Time Temp Pulse Resp B/P (MAP) Pulse Ox O2 Delivery O2 Flow Rate FiO2 09/16/21 07:24 Nasal Cannula 2.0 09/16/21 06:52 99 09/16/21 03:00 98.3 104 16 123/87 (99) 98.3 ROS: No Nausea, No Chest Pain, No Abdominal Pain, No Increase Cough Lungs: Clear Cardiovascular: S1, S2 Abdomen: Soft Extremities: No Edema Labs Laboratory Tests Test 09/14/21 08:02 09/14/21 11:58 09/14/21 20:49 09/15/21 06:00 Glucose (Fingerstick) 134 mg/dL (70-99) 167 mg/dL (70-99) 123 mg/dL (70-99) Sodium Level 150 mmol/L (136-145) Potassium Level 4.5 mmol/L (3.5-5.1) Chloride Level 109 mmol/L (98-107) Carbon Dioxide Level 33 mmol/L (21-32) Anion Gap 8 (6-14) Blood Urea Nitrogen 24 mg/dL (7-20) Creatinine 0.6 mg/dL (0.6-1.0) Estimated GFR (Cockcroft-Gault) 119.6 Glucose Level 151 mg/dL (70-99) Calcium Level 8.4 mg/dL (8.5-10.1) Magnesium Level 2.4 mg/dL (1.8-2.4) Triglycerides Level 73 mg/dL (0-150) Cholesterol Level 149 mg/dL (0-200) LDL Cholesterol, Calculated 83 mg/dL (0-100) VLDL Cholesterol, Calculated 15 mg/dL (0-40) Non-HDL Cholesterol Calculated 98 mg/dL (0-129) HDL Cholesterol 51 mg/dL (40-60) Cholesterol/HDL Ratio 2.9 Thyroid Stimulating Hormone (TSH) 0.134 uIU/mL (0.358-3.74) Free Thyroxine 0.88 ng/dL (0.76-1.46) Free Triiodothyronine (T3) pg/mL 1.47 pg/mL (2.18-3.98) Test 09/15/21 08:40 09/15/21 12:16 09/15/21 16:56 09/15/21 20:58 Glucose (Fingerstick) 133 mg/dL (70-99) 155 mg/dL (70-99) 171 mg/dL (70-99) 143 mg/dL (70-99) Laboratory Tests Test 09/15/21 08:40 09/15/21 12:16 09/15/21 16:56 09/15/21 20:58 Glucose (Fingerstick) 133 mg/dL (70-99) 155 mg/dL (70-99) 171 mg/dL (70-99) 143 mg/dL (70-99) Medications Active Scripts Medications Dose Route/Sig Max Daily Dose Days Date Category Dose Instructions Proair Respiclick (Albuterol Sulfate) 90 Mcg Aer.pow.ba Unknown Dose PRN PRN 09/13/21 Reported Melatonin 10 Mg Tab.mphase 10 Mg PO PRN PRN 09/12/21 Reported Prednisone 20 Mg Tablet 1 Tab PO UD 12 12/19/20 Rx Take 2 tabs days 1,2,3 1.5 tabs days 3,4,5 1 tab days 6,7,8 0.5 tab days 9,10,11 Trelegy Ellipta 100-62.5-25 (Fluticasone/Umeclidin/Vilanter) 1 Each Blst.w.dev 1 Each IH DAILY 08/12/19 Reported Gabapentin (Gabapentin) 400 Mg Capsule 400 Mg PO BID 08/12/19 Reported Losartan Potassium 100 Mg Tablet 100 Mg PO DAILY 08/12/19 Reported Coreg (Carvedilol) 12.5 Mg Tablet 12.5 Mg PO DAILY 02/17/19 Reported Amlodipine Besylate 10 Mg Tablet 10 Mg PO DAILY 06/19/18 Reported Impression . IMPRESSION: 1. Acute hypoxemic respiratory failure. 2. Acute exacerbation of chronic obstructive pulmonary disease. 3. Right upper lobe lung cancer, status post radiation. 4. Tobacco dependence, in remission. 5. Morbid obesity. 6. Hypertension. 7. A. fib with rapid ventricular response, new Plan . 6-minute walk prior to discharge Respiratory status appears to be compensated Home when okay with cardiology BEATRIS MORRISON MD Sep 16, 2021 07:35
[2021-09-16] MEDS: INSULIN LISPRO 300 UNITS/3 ML VIAL. SQ SCH ×3 (07:41→17:14)
[2021-09-16] MEDS: LOSARTAN POTASSIUM 50 MG TABLET. PO SCH (08:48)
[2021-09-16] MEDS: LACTOBACILLUS RHAMNOSUS GG 1 CAPSULE. PO SCH ×2 (08:48→20:20)
[2021-09-16] MEDS: APIXABAN 5 MG TABLET. PO SCH ×2 (08:48→20:20)
[2021-09-16] MEDS: CEFDINIR 300 MG CAPSULE PO SCH ×2 (08:48→20:20)
[2021-09-16] MEDS: GABAPENTIN 400 MG CAPSULE. PO SCH ×2 (08:48→20:20)
[2021-09-16] MEDS: METOPROLOL TART IMMED RELEASE 50 MG TABLET. PO SCH ×2 (08:48→20:21)
--- NOTE | 2021-09-16 09:01 | PDOC ---
IM PROGRESS NOTES- Subjective Subjective Dyspnea is improving. No complaints of palpitations. Objective Vitals/I&O Vital Signs Date Time Temp Pulse Resp B/P (MAP) Pulse Ox O2 Delivery O2 Flow Rate FiO2 09/16/21 08:49 80 123/79 09/16/21 07:24 Nasal Cannula 2.0 09/16/21 07:00 98.3 16 95 98.3 I & O 09/15/21 09/15/21 09/16/21 15:00 23:00 07:00 Intake Total 340 ml 180 ml 120 ml Balance 340 ml 180 ml 120 ml Physical Exam Physical Exam General Appearance - alert and in no distress Chest - decreased breath sounds at bases Heart - S1 and S2 normal Abdomen - soft, non tender Neurological - alert and oriented Musculoskeletal - generalized weakness Extremities - no edema Labs Laboratory Tests Test 09/15/21 12:16 09/15/21 16:56 09/15/21 20:58 09/16/21 07:36 Glucose (Fingerstick) 155 mg/dL (70-99) H 171 mg/dL (70-99) H 143 mg/dL (70-99) H 96 mg/dL (70-99) Meds Current Medications Medications (Trade) Dose Ordered Sig/Lizeth Route PRN Reason Start Time Stop Time Status Last Admin Dose Admin Prednisone (Prednisone) 50 mg 1X ONCE PO 09/15/21 09:00 09/15/21 09:01 DC 09/15/21 08:48 Cefdinir (Omnicef) 300 mg BID PO 09/15/21 09:00 09/16/21 08:48 Metoprolol Tartrate (Lopressor) 50 mg BID PO 09/15/21 21:00 09/16/21 08:48 Metoprolol Tartrate (Lopressor Vial) 5 mg 1X ONCE IVP 09/15/21 09:15 09/15/21 09:19 DC 09/15/21 10:44 Assessment Assessment Problems Medical Problems: (1) COPD exacerbation Status: Acute (2) Hypoxia Status: Acute (3) UTI (urinary tract infection) Status: Acute Assessment/Plan: Afib with RVR Acute hypoxic respiratory failure secondary to COPD exacerbation Acute COPD exacerbation Acute cystitis Acute electrolyte derangement suggestive of dehydrationhypernatremia, hyperchloremia Super super morbid obesity History of diabetes mellitus type 2 History of COPD History of hypertension PLAN: Tachycardia. Improving. Coreg changed to metoprolol. po steroids.po antibiotics pt/ot c/s neg dvt prevention. 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 Okay to discharge home today. Discharge management 35 minutes. Follow-up with in 1 week. Plan Plan For more details regarding further plans, please refer to the orders. Justifications for Admission Other Justification COPD exacerbation and UTI CARLOS RESENDIZ MD Sep 16, 2021 09:01
[2021-09-16 11:00] VITALS: BP 127/79
--- NOTE | 2021-09-16 14:51 | PDOC ---
PROGRESS NOTES Date of Service DATE: 09/16/21 TIME: 14:48 Subjective Subjective Patient seen and examined Objective Objective Vital Signs Date Time Temp Pulse Resp B/P (MAP) Pulse Ox O2 Delivery O2 Flow Rate FiO2 09/16/21 12:15 Nasal Cannula 3.0 09/16/21 11:00 98.4 83 16 127/79 (95) 96 98.4 Intake and Output 09/16/21 07:00 Intake Total 640 ml Balance 640 ml Intake Oral 640 ml # Voids 2 Physical Exam Abdomen: Normal bowel sounds Heart: Other (Irregularly irregular) General: No acute distress Lungs: Other (Slightly decreased breath sounds) Assessment Assessment Problems Medical Problems: (1) COPD exacerbation Status: Acute (2) Hypoxia Status: Acute (3) UTI (urinary tract infection) Status: Acute 1. Acute on chronic respiratory failure with AE COPD. Significantly improved today. 2. New onset AFIB with RVR: rate improved. Continuing Eliquis and beta- rustam. Outpatient echo. Outpatient office follow-up. 3. Hypertension. Better control. Continue present medications. 4. Lung CA s/p radiation 5. H/o tobaccoism; continues to smoke occasionally 6. Hypernatremia: per PCP Comment Review of Relevant I have reviewed the following items dez (where applicable) has been applied. Labs Laboratory Tests Test 09/14/21 20:49 09/15/21 06:00 09/15/21 08:40 09/15/21 12:16 Glucose (Fingerstick) 123 mg/dL (70-99) 133 mg/dL (70-99) 155 mg/dL (70-99) Sodium Level 150 mmol/L (136-145) Potassium Level 4.5 mmol/L (3.5-5.1) Chloride Level 109 mmol/L (98-107) Carbon Dioxide Level 33 mmol/L (21-32) Anion Gap 8 (6-14) Blood Urea Nitrogen 24 mg/dL (7-20) Creatinine 0.6 mg/dL (0.6-1.0) Estimated GFR (Cockcroft-Gault) 119.6 Glucose Level 151 mg/dL (70-99) Calcium Level 8.4 mg/dL (8.5-10.1) Magnesium Level 2.4 mg/dL (1.8-2.4) Triglycerides Level 73 mg/dL (0-150) Cholesterol Level 149 mg/dL (0-200) LDL Cholesterol, Calculated 83 mg/dL (0-100) VLDL Cholesterol, Calculated 15 mg/dL (0-40) Non-HDL Cholesterol Calculated 98 mg/dL (0-129) HDL Cholesterol 51 mg/dL (40-60) Cholesterol/HDL Ratio 2.9 Thyroid Stimulating Hormone (TSH) 0.134 uIU/mL (0.358-3.74) Free Thyroxine 0.88 ng/dL (0.76-1.46) Free Triiodothyronine (T3) pg/mL 1.47 pg/mL (2.18-3.98) Test 09/15/21 16:56 09/15/21 20:58 09/16/21 07:36 09/16/21 10:59 Glucose (Fingerstick) 171 mg/dL (70-99) 143 mg/dL (70-99) 96 mg/dL (70-99) 125 mg/dL (70-99) Laboratory Tests Test 09/15/21 16:56 09/15/21 20:58 09/16/21 07:36 09/16/21 10:59 Glucose (Fingerstick) 171 mg/dL (70-99) 143 mg/dL (70-99) 96 mg/dL (70-99) 125 mg/dL (70-99) Microbiology 09/12/21 Urine Culture - Final, Complete 09/12/21 Blood Culture - Preliminary, Resulted NO GROWTH AFTER 4 DAYS Medications Current Medications Acetaminophen (Tylenol) 1,000 mg 1X ONCE PO Last administered on 09/12/21at 13:05; Start 09/12/21 at 12:45; Stop 09/12/21 at 12:46; Status DC Sodium Chloride 1,000 ml @ 1,000 mls/hr 1X ONCE IV Last administered on 09/12/21at 13:06; Start 09/12/21 at 12:45; Stop 09/12/21 at 13:44; Status DC Dexamethasone Sodium Phosphate (Decadron) 10 mg 1X ONCE IVP Last administered on 09/12/21at 13:04; Start 09/12/21 at 12:45; Stop 09/12/21 at 12:46; Status DC Albuterol/ Ipratropium (Duoneb) 3 ml 1X ONCE NEB Last administered on 09/12/21at 13:08; Start 09/12/21 at 12:45; Stop 09/12/21 at 12:46; Status DC Ceftriaxone Sodium (Rocephin) 1 gm 1X ONCE IVP Last administered on 09/12/21at 18:20; Start 09/12/21 at 17:00; Stop 09/12/21 at 17:01; Status DC Sennosides (Senna) 17.2 mg PRN BID PRN PO CONSTIPATION; Start 09/12/21 at 18:00 Docusate Sodium (Colace) 100 mg PRN DAILY PRN PO HARD STOOLS; Start 09/12/21 at 18:00 Ondansetron HCl (Zofran) 4 mg PRN Q6HRS PRN IVP NAUSEA/VOMITING, 1ST CHOICE; Start 09/12/21 at 18:00 Methylprednisolone Sodium Succinate (SOLU-Medrol 40MG VIAL) 40 mg Q6HRS IV Last administered on 09/13/21at 05:39; Start 09/12/21 at 18:00; Stop 09/13/21 at 09:29; Status DC Albuterol/ Ipratropium (Duoneb) 3 ml RTQID NEB ; Start 09/12/21 at 20:00; Stop 09/13/21 at 05:17; Status DC Dextrose (Dextrose 50%-Water Syringe) 12.5 gm PRN Q15MIN PRN IV SEE COMMENTS; Start 09/12/21 at 18:00; Stop 09/12/21 at 20:49; Status DC Acetaminophen (Tylenol) 650 mg PRN Q4HRS PRN PO TEMP OVER 100.4F OR MILD PAIN Last administered on 09/13/21at 03:48; Start 09/12/21 at 18:00 Lorazepam (Ativan) 0.5 mg PRN Q6HRS PRN PO ANXIETY / AGITATION Last administered on 09/15/21at 20:13; Start 09/12/21 at 18:00 Lorazepam (Ativan Inj) 0.25 mg PRN Q4HRS PRN IV ANXIETY / AGITATION; Start 09/12/21 at 18:00 Enoxaparin Sodium (Lovenox 40mg Syringe) 40 mg Q24H SQ Last administered on 09/13/21at 20:49; Start 09/12/21 at 21:00; Stop 09/14/21 at 13:10; Status DC Pantoprazole Sodium (Protonix) 40 mg DAILYAC PO Last administered on 09/16/21at 05:25; Start 09/13/21 at 07:30 Ceftriaxone Sodium (Rocephin) 1 gm Q24H IVP Last administered on 09/14/21at 16:50; Start 09/13/21 at 18:00; Stop 09/14/21 at 21:27; Status DC Prochlorperazine Edisylate (Compazine) 10 mg PRN Q6HRS PRN IV NAUSEA/VOMITING, 2ND CHOICE; Start 09/12/21 at 18:00 Zolpidem Tartrate (Ambien) 2.5 mg PRN QHS PRN PO INSOMNIA, 1ST CHOICE Last administered on 09/12/21at 22:08; Start 09/12/21 at 18:00 Diphenhydramine HCl (Benadryl) 25 mg PRN Q6HRS PRN IVP ITCHING; Start 09/12/21 at 18:00 Diphenhydramine HCl (Benadryl) 25 mg PRN Q6HRS PRN PO ITCHING; Start 09/12/21 at 18:00 Diphenhydramine HCl (Benadryl) 25 mg PRN QHS PRN PO INSOMNIA, 2ND CHOICE; Start 09/12/21 at 18:00 Zolpidem Tartrate (Ambien) 2.5 mg PRN QHS PRN PO INSOMNIA; Start 09/12/21 at 18:00; Stop 09/12/21 at 18:06; Status DC Insulin Human Lispro (HumaLOG) 0-7 UNITS TIDWMEALS SQ Last administered on 09/15/21at 17:56; Start 09/12/21 at 21:00 Dextrose (Dextrose 50%-Water Syringe) 12.5 gm PRN Q15MIN PRN IV SEE COMMENTS; Start 09/12/21 at 20:45 Albuterol/ Ipratropium (Combivent Respimat 20-100 Mcg) 1 puff RTQID INH Last administered on 09/14/21at 08:09; Start 09/13/21 at 08:00; Stop 09/14/21 at 08:53; Status DC Methylprednisolone Sodium Succinate (SOLU-Medrol 40MG VIAL) 40 mg Q12HR IV Last administered on 09/14/21at 21:19; Start 09/13/21 at 21:00; Stop 09/14/21 at 21:27; Status DC Acetaminophen/ Hydrocodone Bitart (Lortab 5/325) 1 tab PRN Q4HRS PRN PO PAIN Last administered on 09/15/21at 20:14; Start 09/13/21 at 09:30 Lactobacillus Rhamnosus (Culturelle) 1 cap BID PO Last administered on 09/16/21at 08:48; Start 09/13/21 at 21:00 Amlodipine Besylate (Norvasc) 10 mg DAILY PO Last administered on 09/16/21at 08:49; Start 09/14/21 at 09:00 Carvedilol (Coreg) 12.5 mg BIDWMEALS PO ; Start 09/14/21 at 17:00; Stop 09/14/21 at 13:10; Status DC Gabapentin (Neurontin) 400 mg BID PO Last administered on 09/16/21at 08:48; Start 09/14/21 at 09:00 Losartan Potassium (Cozaar) 100 mg DAILY PO Last administered on 09/16/21at 08:48; Start 09/14/21 at 09:00 Carvedilol (Coreg) 12.5 mg 1X ONCE PO Last administered on 09/14/21at 04:02; Start 09/14/21 at 04:00; Stop 09/14/21 at 04:01; Status DC Albuterol/ Ipratropium (Duoneb) 3 ml RTQID NEB Last administered on 09/16/21at 12:00; Start 09/14/21 at 12:00 Metoprolol Tartrate (Lopressor) 25 mg BID PO Last administered on 09/15/21at 08:49; Start 09/14/21 at 21:00; Stop 09/15/21 at 09:18; Status DC Metoprolol Tartrate (Lopressor Vial) 5 mg 1X ONCE IVP Last administered on 09/14/21at 13:53; Start 09/14/21 at 13:15; Stop 09/14/21 at 13:16; Status DC Apixaban (Eliquis) 5 mg BID PO Last administered on 09/16/21at 08:48; Start 09/14/21 at 21:00 Info (Anti-Coagulation Monitoring By Pharmacy) 1 each PRN DAILY PRN MC PER PROTOCOL Last administered on 09/15/21at 11:41; Start 09/14/21 at 13:30 Prednisone (Prednisone) 50 mg 1X ONCE PO Last administered on 09/15/21at 08:48; Start 09/15/21 at 09:00; Stop 09/15/21 at 09:01; Status DC Cefdinir (Omnicef) 300 mg BID PO Last administered on 09/16/21at 08:48; Start 09/15/21 at 09:00 Metoprolol Tartrate (Lopressor) 50 mg BID PO Last administered on 09/16/21at 08:48; Start 09/15/21 at 21:00 Metoprolol Tartrate (Lopressor Vial) 5 mg 1X ONCE IVP Last administered on 09/15/21at 10:44; Start 09/15/21 at 09:15; Stop 09/15/21 at 09:19; Status DC Active Scripts Active Metoprolol Tartrate 50 Mg Tablet 1 Tab PO BID 30 Days Eliquis (Apixaban) 5 Mg Tablet 5 Mg PO BID 30 Days Cefdinir 300 Mg Capsule 300 Mg PO BID 5 Days Prednisone 20 Mg Tablet 1 Tab PO DAILY Prednisone 20 Mg Tablet 1 Tab PO UD 12 Days Take 2 tabs days 1,2,3 1.5 tabs days 3,4,5 1 tab days 6,7,8 0.5 tab days 9,10,11 Reported Proair Respiclick (Albuterol Sulfate) 90 Mcg Aer.pow.ba Unknown Dose PRN PRN Melatonin 10 Mg Tab.mphase 10 Mg PO PRN PRN Trelegy Ellipta 100-62.5-25 (Fluticasone/Umeclidin/Vilanter) 1 Each Blst.w.dev 1 Each IH DAILY Gabapentin (Gabapentin) 400 Mg Capsule 400 Mg PO BID Losartan Potassium 100 Mg Tablet 100 Mg PO DAILY Amlodipine Besylate 10 Mg Tablet 10 Mg PO DAILY Vitals/I & O Vital Sign - Last 24 Hours 09/15/21 09/15/21 09/15/21 09/15/21 15:00 18:32 19:00 19:48 Temp 97.5 98.1 97.5 98.1 Pulse 100 108 Resp 18 16 B/P (MAP) 126/92 (103) 113/71 (85) Pulse Ox 98 95 93 O2 Delivery Nasal Cannula Nasal Cannula Nasal Cannula Nasal Cannula O2 Flow Rate 3.0 3.0 3.0 09/15/21 09/15/21 09/15/21 09/15/21 20:13 20:14 20:44 23:00 Temp 97.5 97.5 Pulse 108 92 Resp 18 18 16 B/P (MAP) 113/71 138/88 (105) Pulse Ox 95 95 97 O2 Delivery Nasal Cannula Nasal Cannula Nasal Cannula O2 Flow Rate 3.0 3.0 09/16/21 09/16/21 09/16/21 09/16/21 03:00 06:52 07:00 07:24 Temp 98.3 98.3 98.3 98.3 Pulse 104 80 Resp 16 16 B/P (MAP) 123/87 (99) 123/79 (94) Pulse Ox 93 99 95 O2 Delivery Nasal Cannula Nasal Cannula Nasal Cannula Nasal Cannula O2 Flow Rate 3.0 3.0 2.0 09/16/21 09/16/21 09/16/21 09/16/21 08:48 08:48 08:49 11:00 Temp 98.4 98.4 Pulse 80 80 80 83 Resp 16 B/P (MAP) 123/79 123/79 123/79 127/79 (95) Pulse Ox 96 O2 Delivery Nasal Cannula 09/16/21 12:15 O2 Delivery Nasal Cannula O2 Flow Rate 3.0 Intake and Output 09/15/21 09/15/21 09/16/21 15:00 23:00 07:00 Intake Total 340 ml 180 ml 120 ml Balance 340 ml 180 ml 120 ml Justifications for Admission Other Justification COPD exacerbation and UTI GOVIND CHOI MD Sep 16, 2021 14:51
[2021-09-16 15:00] VITALS: BP 137/81
--- NOTE | 2021-09-16 18:59 | NUR ---
Discharge paperwork discussed with and given to pt by this RN.
[2021-09-16 20:21] VITALS: BP 143/87
--- NOTE | 2021-09-16 22:00 | NUR ---
Patient discharged at approximately 2140 and was picked up by significant other. Patient belongings were reviewed with patient.
== END 2021-09-16 21:40 | disposition home or self-care (01) | DRG 189 ==
LOC: ER 12:11 → 5 NORTH 17:00 → ER 18:30
PROVIDERS: ADMIT Internal Medicine; ATTEND Internal Medicine
DX: J96.21 Acute and chronic respiratory failure with hypoxia (principal); E87.0 Hyperosmolality and hypernatremia; C34.11 Malignant neoplasm of upper lobe, right bronchus or lung; J44.1 Chronic obstructive pulmonary disease with (acute) exacerbation; N30.00 Acute cystitis without hematuria; E11.9 Type 2 diabetes mellitus without complications; E66.01 Morbid (severe) obesity due to excess calories; F17.201 Nicotine dependence, unspecified, in remission; I10 Essential (primary) hypertension; I48.91 Unspecified atrial fibrillation; Z85.118 Personal history of other malignant neoplasm of bronchus and lung; Z86.73 Personal history of transient ischemic attack (TIA), and cerebral infarction without residual deficits; Z90.49 Acquired absence of other specified parts of digestive tract; Z90.710 Acquired absence of both cervix and uterus; Z92.3 Personal history of irradiation; M19.90 Unspecified osteoarthritis, unspecified site; Z68.32 Body mass index [BMI] 32.0-32.9, adult; Z88.8 Allergy status to other drugs, medicaments and biological substances
CPT/HCPCS: 36415; 71045; 80048; 80053; 80061; 81001; 82550; 82962; 83605; 83615; 83735; 84439; 84443; 84481; 85007; 85025; 85379; 86140; 87040; 87086; 87426; 87804; 93005; 93306; 94640; 96361; 96374; 96375; J0696; J1100; J1650; J1815; J2920; J3490; J7030; J7512; U0003; U0005; 97110-GP; 97116-GP; 97535-GO; 99285-25; G0378

== ENCOUNTER → 2021-10-18 | Outpatient (CLI) | payer MEDICARE ==
[~2021-10-18] MED LIST changes: +APIX5TAB PO; +CEFD300C PO; +MELA10TA2 PO; +METO25TA4 PO; +METO50TA6 PO; +PROAIR RESPICL90 MCG
--- NOTE | 2021-10-18 18:00 | RAD ---
EXAM: CT CHEST WITHOUT CONTRAST HISTORY: Restaging lung cancer COMPARISON: CT chest 03/23/2021 TECHNIQUE: Helical CT of the chest performed without contrast. Coronal and sagittal reformats were o btained. One or more of the following individualized dose reduction techniques were utilized for this examinat ion: 1. Automated exposure control 2. Adjustment of the mA and/or kV according to patient size 3. Use of iterative reconstruction technique. FINDINGS: Thyroid gland and thoracic inlet: Visualized portion of the thyroid gland is normal. Heart and great vessels: The heart is normal in size. There are coronary artery calcifications. The t horacic aorta is normal in caliber. Mild calcified aortic atherosclerosis. Mediastinum and alen: No lymphadenopathy. There are calcified mediastinal and right hilar lymph nodes . Lungs and pleura: There is a new 7 mm nodule and adjacent to 3 mm tree-in-bud nodules in the right lo wer lobe along the diaphragm (image 40, series 3). Perihilar bandlike opacities in the right upper lo be measuring up to 5 mm in thickness are unchanged. New mild subpleural groundglass and reticular robert nges in the posterior right upper lobe. There is new mild to bandlike atelectasis in the lingula and left lower lobe. A 5 mm nodule in the right middle lobe and 3 mm nodule in the right lower lobe are u nchanged. No pleural effusion or pneumothorax. Chest wall and axillae: No axillary lymphadenopathy. Upper abdomen: Surgical changes of cholecystectomy. Bones: No acute osseous abnormality. There is thoracic degenerative disc disease. IMPRESSION: 1. New 7 mm nodule and adjacent 3 mm tree-in-bud nodules in the right lower lobe, indeterminate. Rec ommend continued surveillance. 2. Unchanged bandlike opacity in the right upper lobe with new subpleural groundglass and reticular opacities in the posterior right upper lobe, likely evolving treatment changes. Electronically signed by: Zoraida Celis MD (10/18/2021 5:58 PM) [id number]
== END ==
LOC: CT 12:58
PROVIDERS: ATTEND Radiology Radiation Oncology
DX: C34.31 Malignant neoplasm of lower lobe, right bronchus or lung (principal); R91.8 Other nonspecific abnormal finding of lung field; I25.10 Atherosclerotic heart disease of native coronary artery without angina pectoris; I70.0 Atherosclerosis of aorta; I89.8 Other specified noninfective disorders of lymphatic vessels and lymph nodes; M51.34 Other intervertebral disc degeneration, thoracic region; Z90.49 Acquired absence of other specified parts of digestive tract
CPT/HCPCS: 71250

== ENCOUNTER → 2022-01-03 | Outpatient (CLI) | payer MEDICARE ==
--- NOTE | 2022-01-03 16:46 | CARD ---
MR#: [id number] Date of Study: 01/03/2022 Ordering Physician: BRYANT LIMA, Referring Physician: BRYANT LIMA, Tech: Trinidad Ross [facility] APPROVED REPORT EXAM: Two-dimensional and M-mode echocardiogram with Doppler and color Doppler. Other Information Quality : AverageGoodHR: 83bpm Rhythm : BBB INDICATION Atrial Fibrillation 2D DIMENSIONS RVDd2.9 (2.9-3.5cm)Left Atrium(2D)3.2 (1.6-4.0cm) IVSd1.6 (0.7-1.1cm)Aortic Root(2D)3.1 (2.0-3.7cm) LVDd4.2 (3.9-5.9cm)LVOT Diameter2.3 (1.8-2.4cm) PWd1.2 (0.7-1.1cm)LVDs3.2 (2.5-4.0cm) FS (%) 23.6 %SV37.4 ml Aortic Valve AoV Peak Earl.142.5cm/Khris Peak GR.8.1mmHg LVOT Peak Earl.89.9cm/sAVA (VMAX)2.67cm2 AI P 1/2 [id number] Mitral Valve MV E Sgegvppd32.8cm/sMV DECEL [id number] MV A Ddxdpwgi02.2cm/sE/A Ratio0.4 Pulmonary Valve PV Peak Uftfluon195.6cm/s LEFT VENTRICLE The left ventricle is normal size. There is mild to moderate concentric left ventricular hypertrophy. The left ventricular systolic function is normal and the ejection fraction is within normal range. T he Ejection Fraction is 50-55%. No regional wall motion abnormalities noted. Tissue Doppler imaging r eveals abnormal left ventricular diastolic dysfunction. No left ventricle thrombus noted on this stud y. There is no ventricular septal defect visualized. There is no left ventricular aneurysm. There is no mass noted in the left ventricle. RIGHT VENTRICLE The right ventricle is normal size. There is normal right ventricular wall thickness. The right ventr icular systolic function is normal. ATRIA The left atrium size is normal. The right atrium size is normal. The interatrial septum is intact wit h no evidence for an atrial septal defect or patent foramen ovale as noted on 2-D or Doppler imaging. AORTIC VALVE The aortic valve is normal in structure and function. No aortic regurgitation is present. There is no aortic valvular stenosis. There is no aortic valvular vegetation. MITRAL VALVE Mitral annular calcification is mild. There is no evidence of mitral valve prolapse. There is no mitr al valve stenosis. Doppler and Color-flow revealed trace mitral regurgitation. TRICUSPID VALVE The tricuspid valve is normal in structure and function. There is no tricuspid valve regurgitation no vel. There is no tricuspid valve prolapse or vegetation. There is no tricuspid valve stenosis. PULMONIC VALVE The pulmonary valve is normal in structure and function. There is no pulmonic valvular regurgitation. There is no pulmonic valvular stenosis. GREAT VESSELS The aortic root is normal in size. The ascending aorta is normal in size. The pulmonary artery is nor mal. The IVC is normal in size and collapses >50% with inspiration. PERICARDIAL EFFUSION There is no pleural effusion. The pericardium appears normal. Critical Notification Critical Value: No <Conclusion> The left ventricle is normal size. The left ventricular systolic function is normal and the ejection fraction is within normal range. The Ejection Fraction is 50-55%. There is mild to moderate concentric left ventricular hypertrophy. No aortic regurgitation is present. There is no aortic valvular stenosis. Doppler and Color-flow revealed trace mitral regurgitation. There is no tricuspid valve regurgitation noted. Signed by : Ridge Villeda MD Electronically Approved : 01/03/2022 16:46:08
== END ==
LOC: ECHO 14:51
PROVIDERS: ATTEND Internal Medicine Cardiovascular Disease
DX: I34.0 Nonrheumatic mitral (valve) insufficiency (principal); I51.7 Cardiomegaly; I48.0 Paroxysmal atrial fibrillation
CPT/HCPCS: 93306; C8929